=== PATIENT | female | born 1965 | race Caucasian/White ===

== ENCOUNTER 2017-02-21 14:48 | Emergency (ER) | payer OTHER ==
[2017-02-21 17:33] VITALS: BP 135/75
--- NOTE | 2017-02-21 18:10 | ED ---
Mega Wylie Erika, scribed for Baljinder Olivares MD on 02/21/17 at 1701 . GI/ HPI - HPI Summary HPI Summary: Patient is a 51-year-old female presenting to the ED for STD testing. Patient reports that she recently found out her partner was cheating on her, and is unsure if he has STDs or not. Patient denies any symptoms. - History of Current Complaint Chief Complaint: EDUrogenitalProblems Time Seen by Provider: 02/21/17 15:56 Stated Complaint: STD TESTING Hx Obtained From: Patient Current Severity: None Pain Intensity: 0 Associated Signs and Symptoms: Positive: Negative Aggravating Factor(s): Nothing Alleviating Factor(s): Nothing - Allergy/Home Medications Allergies/Adverse Reactions: Allergies Allergy/AdvReac Type Severity Reaction Status Date / Time Sulfa Drugs Allergy Intermediate See Comment Verified 02/21/17 14:52 Yellow Dye Allergy Intermediate GI Upset Verified 02/21/17 14:52 [From RA Ibuprofen] Adhesive Tape [Paper Tape] Allergy Mild Rash Verified 02/21/17 14:52 Latex Allergy Mild Rash Verified 02/21/17 14:52 Amoxicillin Allergy GI Upset Verified 02/21/17 14:52 Azithromycin [From Z-Peng] Allergy GI Upset Verified 02/21/17 14:52 Cefaclor [From Ceclor] Allergy GI Upset Verified 02/21/17 14:52 Cephalexin [From Keflex] Allergy GI Upset Verified 02/21/17 14:52 Doxycycline Allergy Vomiting Verified 02/21/17 14:52 Erythromycin Allergy GI Upset Verified 02/21/17 14:52 Hydrocodone Allergy GI Upset Verified 02/21/17 14:52 Ibuprofen Allergy GI Upset Verified 02/21/17 14:52 Iodinated Contrast Media Allergy Hives Verified 02/21/17 14:52 [CONTRAST DYE] Levofloxacin [From Levaquin] Allergy Dizziness Verified 02/21/17 14:52 Penicillin G Allergy GI Upset Verified 02/21/17 14:52 Procaine [From Novocain] Allergy Agitation Verified 02/21/17 14:52 PMH/Surg Hx/FS Hx/Imm Hx Endocrine/Hematology History: Reports: Hx Thyroid Disease - HYPO Denies: Hx Diabetes Cardiovascular History: Denies: Hx Hypertension, Hx Pacemaker/ICD Respiratory History: Reports: Hx Asthma - INHALERS Denies: Hx Chronic Obstructive Pulmonary Disease (COPD) GI History: Reports: Hx Gastroesophageal Reflux Disease, Hx Hiatal Hernia Denies: Hx Ulcer History: Denies: Hx Dialysis, Hx Renal Disease Musculoskeletal History: Reports: Hx Arthritis - "ALL OVER", Other Musculoskeletal History - DDD Sensory History: Reports: Hx Contacts or Glasses - GLASSES Denies: Hx Hearing Aid Opthamlomology History: Reports: Hx Contacts or Glasses - GLASSES Psychiatric History: Reports: Hx Anxiety - ON DAILY MEDS, Hx Depression, Hx Panic Disorder, Hx Bipolar Disorder - Cancer History Hx Chemotherapy: No Hx Radiation Therapy: No - Surgical History Surgery Procedure, Year, and Place: OPEN KEYANA AND APPY 1987. HERNIA REPAIR 1996. [place] [facility] [place] [facility] [place] Anesthesia Reactions: No Infectious Disease History: No Infectious Disease History: Reports: Hx Shingles Denies: Hx Clostridium Difficile, Hx Hepatitis, Hx Human Immunodeficiency Virus (HIV), Hx of Known/Suspected MRSA, Hx Tuberculosis, Hx Known/Suspected VRE , Hx Known/Suspected VRSA, History Other Infectious Disease, Traveled Outside the [place] in Last 30 Days - Family History Known Family History: Positive: Other - breast cancer - Social History Alcohol Use: None Hx Substance Use: No Substance Use Type: Reports: None Hx Tobacco Use: Yes Smoking Status (MU): Former Smoker Type: Cigarettes Amount Used/How Often: 1/2 PPD Length of Time of Smoking/Using Tobacco: 10 YRS Have You Smoked in the Last Year: No Review of Systems Negative: Fever Negative: Abdominal Pain Negative: dysuria, discharge All Other Systems Reviewed And Are Negative: Yes Physical Exam Triage Information Reviewed: Yes Vital Signs On Initial Exam: Initial Vitals Temp Pulse Resp BP Pulse Ox 97.7 F 79 17 154/82 97 02/21/17 14:52 02/21/17 14:52 02/21/17 14:52 02/21/17 14:52 02/21/17 14:52 Vital Signs Reviewed: Yes Appearance: Positive: Well-Appearing, No Pain Distress, Obese Skin: Positive: Warm, Skin Color Reflects Adequate Perfusion, Dry Head/Face: Positive: Normal Head/Face Inspection Eyes: Positive: Normal ENT: Positive: Normal ENT inspection Neck: Positive: Supple, Nontender Respiratory/Lung Sounds: Positive: Clear to Auscultation, Breath Sounds Present Cardiovascular: Positive: RRR Abdomen Description: Positive: Nontender, Soft Bowel Sounds: Positive: Present Musculoskeletal: Positive: Normal Neurological: Positive: Normal Psychiatric: Positive: Affect/Mood Appropriate Diagnostics - Vital Signs Vital Signs Temp Pulse Resp BP Pulse Ox 02/21/17 14:54 97.7 F 79 17 154/82 97 02/21/17 14:52 97.7 F 79 17 154/82 97 - Laboratory Lab Statement: Any lab studies that have been ordered have been reviewed, and results considered in the medical decision making process. Re-Evaluation - Re-Evaluation First Eval Re-Evaluation Time: 17:25 Comment: Discussed procedure for test results. Will call if results are positive and meds will be prescribed as necessary GIGU Course/Dx - Course Course Of Treatment: Ms. Zapata is completely asymptomatic and I sent off labs. I recommended that she get checked out if she develops any symptoms and we will , of course, call her if her tests come back positive. - Diagnoses Provider Diagnoses: Concern about STD in female without diagnosis Discharge - Discharge Plan Condition: Stable Disposition: HOME Patient Education Materials: Sexually Transmitted Diseases (ED) Referrals: Yoli Ro MD [Primary Care Provider] - Additional Instructions: We will call you if tests are positive. If you have any symptoms, please follow up. The documentation as recorded by the Mega wooten Erika accurately reflects the service I personally performed and the decisions made by me, Baljinder Olivares MD.
== END 2017-02-21 17:31 | disposition home or self-care (01) ==
LOC: ED 14:48
DX: Z20.2 Contact with and (suspected) exposure to infections with a predominantly sexual mode of transmission (principal); Z88.0 Allergy status to penicillin; Z88.2 Allergy status to sulfonamides; E03.9 Hypothyroidism, unspecified; J45.909 Unspecified asthma, uncomplicated; K21.9 Gastro-esophageal reflux disease without esophagitis; F41.9 Anxiety disorder, unspecified; F32.9 Major depressive disorder, single episode, unspecified; Z87.891 Personal history of nicotine dependence
CPT/HCPCS: 36415; 86703; 86803; 87491; 87591; 99281

== ENCOUNTER 2017-03-05 11:31 | Emergency (ER) | payer OTHER ==
[2017-03-05 11:36] VITALS: BP 145/72
--- NOTE | 2017-03-05 12:37 | ED ---
Lower Extremity - HPI Summary HPI Summary: 51 y/o female w h/o DM, chronic back pain, presents for R foot pain x 1 week, no trauma/ incident, no other symptoms, increased pain with walking initially longer distances, now with walking any distance. Patient states no change in pain level throughout day, pain 10/10. NO prior injuries/ similar incidents to rR ankle in past. No working currently. VSS. H/O varicose veins, no chest pain, shortness of breath - History of Current Complaint Chief Complaint: EDExtremityLower Stated Complaint: RIGHT FOOT PAIN Time Seen by Provider: 03/05/17 12:14 Hx Obtained From: Patient Hx Last Menstrual Period: 05/14/2013 Mechanism Of Injury: Unknown - no trauma incident identified Onset of Pain: Immediate Onset/Duration: Weeks - 1 week Pain Intensity: 10 Pain Scale Used: 0-10 Numeric Timing: Constant Location: Is Discrete @ - right inner ankle/ foot Character Of Pain: Sharp, Throbbing Associated Signs And Symptoms: Positive: Negative Aggravating Factor(s): Standing, Ambulation, Movement, Weight Bearing - Allergies/Home Medications Allergies/Adverse Reactions: Allergies Allergy/AdvReac Type Severity Reaction Status Date / Time Sulfa Drugs Allergy Intermediate See Comment Verified 03/05/17 11:35 Yellow Dye Allergy Intermediate GI Upset Verified 03/05/17 11:35 [From RA Ibuprofen] Adhesive Tape [Paper Tape] Allergy Mild Rash Verified 03/05/17 11:35 Latex Allergy Mild Rash Verified 03/05/17 11:35 Amoxicillin Allergy GI Upset Verified 03/05/17 11:35 Azithromycin [From Z-Peng] Allergy GI Upset Verified 03/05/17 11:35 Cefaclor [From Ceclor] Allergy GI Upset Verified 03/05/17 11:35 Cephalexin [From Keflex] Allergy GI Upset Verified 03/05/17 11:35 Doxycycline Allergy Vomiting Verified 03/05/17 11:35 Erythromycin Allergy GI Upset Verified 03/05/17 11:35 Hydrocodone Allergy GI Upset Verified 03/05/17 11:35 Ibuprofen Allergy GI Upset Verified 03/05/17 11:35 Iodinated Contrast Media Allergy Hives Verified 03/05/17 11:35 [CONTRAST DYE] Levofloxacin [From Levaquin] Allergy Dizziness Verified 03/05/17 11:35 Penicillin G Allergy GI Upset Verified 03/05/17 11:35 Procaine [From Novocain] Allergy Agitation Verified 03/05/17 11:35 PMH/Surg Hx/FS Hx/Imm Hx Previously Healthy: Yes Endocrine/Hematology History: Reports: Hx Thyroid Disease - HYPO Denies: Hx Diabetes Cardiovascular History: Denies: Hx Hypertension, Hx Pacemaker/ICD Respiratory History: Reports: Hx Asthma - INHALERS Denies: Hx Chronic Obstructive Pulmonary Disease (COPD) GI History: Reports: Hx Gastroesophageal Reflux Disease, Hx Hiatal Hernia Denies: Hx Ulcer History: Denies: Hx Dialysis, Hx Renal Disease Musculoskeletal History: Reports: Hx Arthritis - "ALL OVER", Other Musculoskeletal History - DDD Sensory History: Reports: Hx Contacts or Glasses - GLASSES Denies: Hx Hearing Aid Opthamlomology History: Reports: Hx Contacts or Glasses - GLASSES Psychiatric History: Reports: Hx Anxiety - ON DAILY MEDS, Hx Depression, Hx Panic Disorder, Hx Bipolar Disorder - Cancer History Hx Chemotherapy: No Hx Radiation Therapy: No - Surgical History Surgery Procedure, Year, and Place: OPEN KEYANA AND APPY 1987. HERNIA REPAIR 1996. RT KNEE SURGERY 2005 [facility] [place]. LAP HERNIA REPAIR 2014 [facility] [place] Hx Anesthesia Reactions: No Infectious Disease History: No Infectious Disease History: Reports: Hx Shingles Denies: Hx Clostridium Difficile, Hx Hepatitis, Hx Human Immunodeficiency Virus (HIV), Hx of Known/Suspected MRSA, Hx Tuberculosis, Hx Known/Suspected VRE , Hx Known/Suspected VRSA, History Other Infectious Disease, Traveled Outside the in Last 30 Days - Family History Known Family History: Positive: None - reviewed & noncontributory, Other - breast cancer - Social History Alcohol Use: None Hx Substance Use: No Substance Use Type: Reports: None Hx Tobacco Use: Yes Smoking Status (MU): Never Smoked Tobacco Type: Cigarettes Amount Used/How Often: 1/2 PPD Length of Time of Smoking/Using Tobacco: 10 YRS Have You Smoked in the Last Year: No Review of Systems Constitutional: Negative Eyes: Negative ENT: Negative Cardiovascular: Negative Respiratory: Negative Gastrointestinal: Negative Genitourinary: Negative Positive: Myalgia, Decreased ROM Skin: Negative Neurological: Negative Psychological: Normal All Other Systems Reviewed And Are Negative: Yes Physical Exam Triage Information Reviewed: Yes Vital Signs On Initial Exam: Initial Vitals Temp Pulse Resp BP Pulse Ox 99.3 F 86 16 145/72 97 03/05/17 11:35 03/05/17 11:35 03/05/17 11:35 03/05/17 11:35 03/05/17 11:35 Vital Signs Reviewed: Yes Appearance: Positive: Well-Appearing, No Pain Distress - sitting comfortably in bed, texting on phone throughout examination, avoiding eye contact with examiner , answering in short statements, Well-Nourished Skin: Positive: Warm, Skin Color Reflects Adequate Perfusion, Other - + VV with tenderness to palpation over VV right proximal medial malleolus, mild tenderness to palption over inferior medial malleolus. Head/Face: Positive: Normal Head/Face Inspection Eyes: Positive: EOMI Musculoskeletal: Positive: Normal, Strength/ROM Intact, Other - see above tenderness to palpation around medial malleous, no tenderness over malleolus itself. Neurological: Positive: Normal, Sensory/Motor Intact, Alert, Oriented to Person Place, Time, CN Intact II-III Psychiatric: Positive: Normal Diagnostics - Vital Signs Vital Signs Temp Pulse Resp BP Pulse Ox 03/05/17 11:36 99.3 F 86 16 145/72 98 03/05/17 11:35 99.3 F 86 16 145/72 97 - Laboratory Lab Statement: Any lab studies that have been ordered have been reviewed, and results considered in the medical decision making process. Lower Extremity Course/Dx - Course Course Of Treatment: US- R LE- negative for DVT, discussed with patient, no clear sign of trauma, no sign of infection, follow up with PCP, patient has appt on . - Diagnoses Differential Diagnosis/HQI/PQRI: Positive: Cellulitis, Compartment Syndrome, Contusion, Dislocation, DVT, Infection, Osteomyelitis, Phlebitis Provider Diagnoses: Acute ankle pain Discharge - Discharge Plan Condition: Stable Disposition: HOME Prescriptions: Acetaminophen TAB* [Tylenol TAB*] 650 mg PO Q6H PRN #20 tab PRN Reason: Pain Patient Education Materials: Superficial Thrombophlebitis (ED) Referrals: Yoli Ro MD [Primary Care Provider] - Additional Instructions: - Likely superficial thrombophlebitis. Negative for deep vein thrombosis, follow up with primary physician within 48 hours for treatment
--- NOTE | 2017-03-05 13:07 | RAD ---
Indication: Right leg pain. Duplex Doppler sonography of the deep venous system of the right lower extremity deep venous system was performed. Bilaterally the common femoral veins appear patent and compressible. Right proximal greater saphenous vein, proximal deep femoral vein, femoral vein, popliteal vein, posterior tibial veins and peroneal veins appear patent and compressible. IMPRESSION: NO EVIDENCE OF DEEP VENOUS THROMBOSIS IS IDENTIFIED.
== END 2017-03-05 13:34 | disposition home or self-care (01) ==
LOC: ED 11:31
DX: M25.571 Pain in right ankle and joints of right foot (principal); M54.9 Dorsalgia, unspecified; M79.671 Pain in right foot
CPT/HCPCS: 99281

== ENCOUNTER 2017-04-21 11:34 | Emergency (ER) | payer OTHER ==
[2017-04-21] MEDS ORDERED: NS 0.9% 1000 ML* 1,000 ML IV ONE (12:25)
[2017-04-21 13:46] LABS: Hematocrit 29 % (35-47); Hemoglobin 9.2 g/dl (12.0-16.0); Mean Corpuscular HGB Conc 32 g/dl (31-36); Mean Corpuscular Hemoglobin 26 pg (27-31); Mean Corpuscular Volume 82 fL (80-97); Mean Platelet Volume 9 um3 (7.4-10.4); Red Blood Count 3.49 10^6/ul (4.0-5.4); Red Cell Distribution Width 16 % (10.5-15)
--- NOTE | 2017-04-21 13:47 | RAD ---
INDICATION: Perimenopausal and heavy vaginal bleeding times one year. COMPARISON: Similar examinations dated 11/27/2013 and 07/24/2009 TECHNIQUE: Real-time transabdominal and transvaginal ultrasound examination of the female pelvis including grayscale and Doppler color flow imaging. FINDINGS: Uterus: Overall the myometrium is heterogeneous in appearance. The endometrial stripe measures 3 mm in thickness but there appears to be thickening of the junctional zone measuring at least 6 mm in thickness and perhaps nearly 2 cm at the fundal height uterus. A similar appearance was identified on the ultrasounds acquired in 2013 and 2008. There is an ill-defined convex line seen in the anterior fundal height myometrial which potentially could be the outline of a fibroid or adenomyoma (image 2 of 43). Ovaries: The right and left ovary measure 3.5 x 1.9 x 1.7 cm and 2.6 x 2.2 x 1.8 cm, respectively. Normal arterial and venous waveforms are identified. Within the left ovary there appears to be a 2 cm avascular and echogenic focus that possibly could represent a hemorrhagic follicle. The appearance is not significantly changed when compared to the November 27, 2013 ultrasound. There is no free fluid in the cul-de-sac. IMPRESSION: 1. As described above there is questionable thickening of the junctional zone as well as questionable identification of a poorly defined mass at the fundal height uterus. This potentially could represent a fibroid, adenomyoma or, less likely, a more sinister etiology. Review of prior imaging demonstrates junctional zone thickening on the November 27, 2013 ultrasound which is a finding associated with adenomyosis. 2. Avascular echogenic structure in the left ovary does not appear to have changed significantly since the November 27, 2013 ultrasound. In the absence of other further gynecologic workup, the left ovary can be followed up with pelvic ultrasound in approximately 6 weeks to ascertain resolution versus stability.
[2017-04-21 14:07] LABS: Albumin 3.8 g/dL (3.2-5.2); BUN/Creatinine Ratio 12.2 (8-20); C Reactive Protein 8.59 mg/L (< 5.00); Calcium 8.8 mg/dL (8.6-10.3); EGFR African American 94.5 (>60); EGFR Non-African American 73.5 (>60); Globulin 3.1 g/dL (2-4); Potassium 4.1 mmol/L (3.5-5.0); Total Bilirubin 0.3 mg/dL (0.2-1.0); Total Protein 6.9 g/dL (6.4-8.9)
[2017-04-21 14:42] LABS: Urine Bilirubin Negative (Negative); Urine Glucose Negative (Negative); Urine Nitrite Negative (Negative)
[2017-04-21 15:04] VITALS: BP 126/81
--- NOTE | 2017-04-22 11:04 | ED ---
Braden Wylie Auryana, scribed for Jayjay Lara MD on 04/21/17 at 1227 . Abdominal Pain/Female - HPI Summary HPI Summary: 51 year old female presents to the ED with vaginal bleeding and cramping suprapubic abdominal pain starting 3.5 weeks ago. She also has increased fatigue , and SOB. She states that this is her first episode with the current complaint - states that her menstrual cycle is typically 3 days long and light. She denies any chance of - tubal ligation. She is not on any blood thinners. She is currently scheduled to see an WINDOWS ADMIN on 05/09/17. PMHx is significant for tubal ligation (Nov 2016), cholecystectomy, appendectomy, double hernia repair, and an umbilical surgery. She denies any tobacco, alcohol , or recreational drug use. FHx is significant for DM and cancer. - History of Current Complaint Chief Complaint: EDAbdPain Stated Complaint: HEAVY VAGINAL BLEEDING Time Seen by Provider: 04/21/17 12:07 Hx Obtained From: Patient Hx Last Menstrual Period: 03/16/17 ?: No Onset/Duration: Gradual Onset, Lasting Weeks - since apr 01 2017 Timing: Constant Severity Initially: Moderate Severity Currently: Moderate Pain Intensity: 6 Pain Scale Used: 0-10 Numeric Location: Suprapubic Character: Cramping Associated Signs and Symptoms: Positive: Vaginal Bleeding, Other: - increased fatigue, SOB , abdominal pain Simlar Episode/Dx as:: no Allergies/Adverse Reactions: Allergies Allergy/AdvReac Type Severity Reaction Status Date / Time Sulfa Drugs Allergy Intermediate See Comment Verified 03/05/17 11:35 Yellow Dye Allergy Intermediate GI Upset Verified 03/05/17 11:35 [From RA Ibuprofen] Adhesive Tape [Paper Tape] Allergy Mild Rash Verified 03/05/17 11:35 Latex Allergy Mild Rash Verified 03/05/17 11:35 Amoxicillin Allergy GI Upset Verified 03/05/17 11:35 Azithromycin [From Z-Peng] Allergy GI Upset Verified 03/05/17 11:35 Cefaclor [From Ceclor] Allergy GI Upset Verified 03/05/17 11:35 Cephalexin [From Keflex] Allergy GI Upset Verified 03/05/17 11:35 Doxycycline Allergy Vomiting Verified 03/05/17 11:35 Erythromycin Allergy GI Upset Verified 03/05/17 11:35 Hydrocodone Allergy GI Upset Verified 03/05/17 11:35 Ibuprofen Allergy GI Upset Verified 03/05/17 11:35 Iodinated Contrast Media Allergy Hives Verified 03/05/17 11:35 [CONTRAST DYE] Levofloxacin [From Levaquin] Allergy Dizziness Verified 03/05/17 11:35 Penicillin G Allergy GI Upset Verified 03/05/17 11:35 Procaine [From Novocain] Allergy Agitation Verified 03/05/17 11:35 PMH/Surg Hx/FS Hx/Imm Hx Endocrine/Hematology History: Reports: Hx Thyroid Disease - HYPO Denies: Hx Diabetes Cardiovascular History: Denies: Hx Hypertension, Hx Pacemaker/ICD Respiratory History: Reports: Hx Asthma Denies: Hx Chronic Obstructive Pulmonary Disease (COPD) GI History: Reports: Hx Gastroesophageal Reflux Disease, Hx Hiatal Hernia Denies: Hx Ulcer History: Denies: Hx Dialysis, Hx Renal Disease Musculoskeletal History: Reports: Hx Arthritis - "ALL OVER", Other Musculoskeletal History - DDD Sensory History: Reports: Hx Contacts or Glasses - GLASSES Denies: Hx Hearing Aid Opthamlomology History: Reports: Hx Contacts or Glasses - GLASSES Psychiatric History: Reports: Hx Anxiety - ON DAILY MEDS, Hx Depression, Hx Panic Disorder, Hx Bipolar Disorder - Cancer History Hx Chemotherapy: No Hx Radiation Therapy: No - Surgical History Surgery Procedure, Year, and Place: OPEN KEYANA AND APPY 1987. HERNIA REPAIR 1996. RT KNEE SURGERY 2005 [facility] [place]. LAP HERNIA REPAIR 2014 [facility] [place] Hx Anesthesia Reactions: No Infectious Disease History: No Infectious Disease History: Reports: Hx Shingles Denies: Hx Clostridium Difficile, Hx Hepatitis, Hx Human Immunodeficiency Virus (HIV), Hx of Known/Suspected MRSA, Hx Tuberculosis, Hx Known/Suspected VRE , Hx Known/Suspected VRSA, History Other Infectious Disease, Traveled Outside the [place] in Last 30 Days - Family History Known Family History: Positive: Diabetes, Other - breast cancer - Social History Occupation: Unemployed Lives: With Family Alcohol Use: None Hx Substance Use: No Substance Use Type: Reports: None Hx Tobacco Use: Yes Smoking Status (MU): Former Smoker Type: Cigarettes Amount Used/How Often: 1/2 PPD Length of Time of Smoking/Using Tobacco: 10 YRS Have You Smoked in the Last Year: No Review of Systems Positive: Fatigue. Negative: Fever Eyes: Negative ENT: Negative Cardiovascular: Negative Positive: Shortness Of Breath Positive: Abdominal Pain - suprapubic Positive: other - vaginal bleeding Musculoskeletal: Negative Skin: Negative Neurological: Negative Psychological: Normal All Other Systems Reviewed And Are Negative: Yes Physical Exam - Summary Physical Exam Summary: VITAL SIGNS: Reviewed. GENERAL: Patient is a well-developed and nourished female who is lying comfortable in the stretcher. Patient is not in any acute respiratory or pain distress. HEAD AND FACE: Normocephalic and atraumatic. EYES: PERRLA, EOMI x 2, No injected conjunctiva. EARS: Hearing grossly intact. Ear canals and tympanic membranes are WNL. MOUTH: Oropharynx within normal limits. NECK: Supple, trachea is midline, no adenopathy, no JVD. CHEST: Symmetric, no tenderness at palpation LUNGS: Clear to auscultation bilaterally. No wheezing or crackles. CVS: RRR, S1 and S2 present, no murmurs or gallops appreciated. ABDOMEN: Soft, non-tender. No signs of distention. Positive bowel sounds. No rebound no guarding, and no masses palpated. No abdominal bruit or pulsations. EXTREMITIES: FROM in all major joints, no edema, no cyanosis or clubbing. NEURO: Alert and oriented x 3. No acute neurological deficits. Speech is normal. SKIN: Dry and warm Triage Information Reviewed: Yes Vital Signs On Initial Exam: Initial Vitals Temp Pulse Resp BP Pulse Ox 97.8 F 94 20 153/68 96 04/21/17 11:47 04/21/17 11:47 04/21/17 11:47 04/21/17 11:47 04/21/17 11:47 Vital Signs Reviewed: Yes Diagnostics - Vital Signs Vital Signs Temp Pulse Resp BP Pulse Ox 04/21/17 11:48 98.2 F 91 20 153/68 98 04/21/17 11:47 97.8 F 94 20 153/68 96 - Laboratory Lab Results: Lab Results 04/21/17 04/21/17 04/21/17 Range/Units 13:33 13:33 14:25 WBC 8.0 (3.5-10.8) 10^3/ul RBC 3.49 L (4.0-5.4) 10^6/ul Hgb 9.2 L (12.0-16.0) g/dl Hct 29 L (35-47) % MCV 82 (80-97) fL MCH 26 L (27-31) pg MCHC 32 (31-36) g/dl RDW 16 H (10.5-15) % Plt Count 214 (150-450) 10^3/ul MPV 9 (7.4-10.4) um3 Neut % (Auto) 70.1 (38-83) % Lymph % (Auto) 19.7 L (25-47) % [place] % (Auto) 8.3 (1-9) % Eos % (Auto) 1.1 (0-6) % Baso % (Auto) 0.8 (0-2) % Absolute Neuts (auto) 5.6 (1.5-7.7) 10^3/ul Absolute Lymphs (auto) 1.6 (1.0-4.8) 10^3/ul Absolute Monos (auto) 0.7 (0-0.8) 10^3/ul Absolute Eos (auto) 0.1 (0-0.6) 10^3/ul Absolute Basos (auto) 0.1 (0-0.2) 10^3/ul Absolute Nucleated RBC 0 10^3/ul Nucleated RBC % 0 Sodium 136 (133-145) mmol/L Potassium 4.1 (3.5-5.0) mmol/L Chloride 102 (101-111) mmol/L Carbon Dioxide 30 (22-32) mmol/L Anion Gap 4 (2-11) mmol/L BUN 10 (6-24) mg/dL Creatinine 0.82 (0.51-0.95) mg/dL Est GFR ( Amer) 94.5 (>60) Est GFR (Non-Af Amer) 73.5 (>60) BUN/Creatinine Ratio 12.2 (8-20) Glucose 71 (70-100) mg/dL Calcium 8.8 (8.6-10.3) mg/dL Total Bilirubin 0.30 (0.2-1.0) mg/dL AST 16 (13-39) U/L ALT 14 (7-52) U/L Alkaline Phosphatase 58 (34-104) U/L C-Reactive Protein 8.59 H (< 5.00) mg/L Total Protein 6.9 (6.4-8.9) g/dL Albumin 3.8 (3.2-5.2) g/dL Globulin 3.1 (2-4) g/dL Albumin/Globulin Ratio 1.2 (1-3) Lipase 25 (11.0-82.0) U/L Beta HCG, Quant 0.74 mIU/mL Urine Color Yellow Urine Appearance Clear Urine pH 6.0 (5-9) Ur Specific [place] 1.009 L (1.010-1.030) Urine Protein Negative (Negative) Urine Ketones Negative (Negative) Urine Blood Negative (Negative) Urine Nitrate Negative (Negative) Urine Bilirubin Negative (Negative) Urine Urobilinogen Negative (Negative) Ur Leukocyte Esterase Negative (Negative) Urine Glucose Negative (Negative) Result Diagrams: 04/21/17 13:33 04/21/17 13:33 Lab Statement: Any lab studies that have been ordered have been reviewed, and results considered in the medical decision making process. - Additional Comments Diagnostic Additional Comments: US TRANSVAGINAL IMPRESSION: 1. As described above there is questionable thickening of the junctional zone as well as questionable identification of a poorly defined mass at the fundal height uterus. This potentially could represent a fibroid, adenomyoma or, less likely, a more sinister etiology. Review of prior imaging demonstrates junctional zone thickening on the November 27, 2013 ultrasound which is a finding associated with adenomyosis. 2. Avascular echogenic structure in the left ovary does not appear to have changed significantly since the November 27, 2013 ultrasound. In the absence of other further gynecologic workup, the left ovary can be followed up with pelvic ultrasound in approximately 6 weeks to ascertain resolution versus stability. Re-Evaluation - Re-Evaluation First Eval Re-Evaluation Time: 14:35 - discussed US and plan of discharge Change: Unchanged Comment: patient declined vaginal exam Abdominal Pain Fem Course/Dx - Course Course Of Treatment: 51 year old female presents to the ED with vaginal bleeding and cramping suprapubic abdominal pain starting 3.5 weeks ago. She also has increased fatigue, and SOB. She states that this is her first episode with the current complaint - states that her menstrual cycle is typically 3 days long and light. She denies any chance of - tubal ligation. She is not on any blood thinners. She is currently scheduled to see an WINDOWS ADMIN on . PMHx is significant for tubal ligation (Nov 2016), cholecystectomy, appendectomy, double hernia repair, and an umbilical surgery. She denies any tobacco, alcohol, or recreational drug use. FHx is significant for DM and cancer. Test results WNL except Hg 9.2 Hct 29, UA- neg U.T.I. Patient declined pelvic exam but accepted transvaginal US - IMPRESSION: 1. As described above there is questionable thickening of the junctional zone as well as. questionable identification of a poorly defined mass at the fundal height uterus. This. potentially could represent a fibroid, adenomyoma or, less likely , a more sinister. etiology. Review of prior imaging demonstrates junctional zone thickening on the 2013 ultrasound which is a finding associated with adenomyosis. 2. Avascular echogenic structure in the left ovary does not appear to have changed. significantly since the November 27, 2013 ultrasound. In the absence of other further. gynecologic workup, the left ovary can be followed up with pelvic ultrasound in. approximately 6 weeks to ascertain resolution versus stability. . I discussed my physical exam and findings with Dr. Garg (WINDOWS ADMIN) recommends discharge home with follow up at office with further assessment and treatment. Patient is hemodynamically stable and A&O x3. No dizziness, lightheadedness or SOB. I discussed this with patient and she agreed to follow up in next couple of days for the treatment. She was instructed to return to ER if increased bleeding, dizziness, palpitations, or SOB. Patient understands and agrees. Patient is hemodynamically stable and A&O x3. - Diagnoses Differential Diagnosis: Positive: Ectopic , , Urinary Tract Infection Provider Diagnoses: Abnormal vaginal bleeding, Fibroid uterus - Provider Notifications Discussed Care Of Patient With: Mandeep Garg - follow up with office Time Discussed With Above Provider: 14:37 Instructed by Provider To: Have Pt Call For Appt. Discharge - Discharge Plan Condition: Stable Disposition: HOME Patient Education Materials: Dysfunctional Uterine Bleeding (ED), Uterine Fibroids (ED) Referrals: Mandeep Garg MD [Medical Doctor] - 2 Days Onesimo Willis MD [Medical Doctor] - 3 Days The documentation as recorded by the Braden wooten Auryana accurately reflects the service I personally performed and the decisions made by , Jayjay Lara MD.
== END 2017-04-21 15:17 | disposition home or self-care (01) ==
LOC: ED 11:34
DX: N93.9 Abnormal uterine and vaginal bleeding, unspecified (principal); D25.9 Leiomyoma of uterus, unspecified; Z32.02 Encounter for pregnancy test, result negative; R53.83 Other fatigue; R06.02 Shortness of breath; R10.30 Lower abdominal pain, unspecified; E03.9 Hypothyroidism, unspecified; J45.909 Unspecified asthma, uncomplicated; K21.9 Gastro-esophageal reflux disease without esophagitis; F41.9 Anxiety disorder, unspecified; F32.9 Major depressive disorder, single episode, unspecified; Z90.49 Acquired absence of other specified parts of digestive tract; Z88.4 Allergy status to anesthetic agent; Z88.0 Allergy status to penicillin; Z88.2 Allergy status to sulfonamides; Z88.1 Allergy status to other antibiotic agents; Z91.040 Latex allergy status; Z88.5 Allergy status to narcotic agent; Z88.6 Allergy status to analgesic agent; Z91.041 Radiographic dye allergy status; Z87.891 Personal history of nicotine dependence
CPT/HCPCS: 36415; 76830; 80053; 81003; 83690; 84702; 85025; 86140; 96360; 99282

== ENCOUNTER 2019-02-06 14:03 | Emergency (ER) | payer OTHER ==
[2019-02-06] MEDS ORDERED: Ketorolac INJ* 60 MG/2 ML VIAL IM ONE (14:57)
--- NOTE | 2019-02-06 15:23 | ED ---
Throat Pain/Nasal Congestion - HPI Summary HPI Summary: Patient is a 53-year-old female presenting to the ED with upper left tooth pain which is been present since December. She states the worst of her symptoms began approximately 2 weeks ago and it continued to worsen. She denies any erythema or drainage from the area. She states she the tooth pulled, called the dentist today, but they were unable to get her in. This is just she come over to the ED for antibiotics and they will see her next week to extract the tooth. She has gingivitis and several broken teeth and cavities throughout. She has never had a dental infection in the past. She has multiple drug allergies. She has been using saltwater rinses without relief, she has not been using ibuprofen or aspirin due to a allergy. - History of Current Complaint Chief Complaint: EDDentalPain Time Seen by Provider: 02/06/19 14:18 Hx Obtained From: Patient Onset/Duration: Sudden Onset Associated Signs And Symptoms: Positive: Negative Cough: Nonproductive - Epiglottits Risk Factors Epiglottis Risk Factors: Negative - Allergies/Home Medications Allergies/Adverse Reactions: Allergies Allergy/AdvReac Type Severity Reaction Status Date / Time MS Sulfa Drugs [Sulfa Drugs] Allergy Intermediate See Comment Verified 02/06/19 14:12 MS Yellow Dye Allergy Intermediate GI Upset Verified 02/06/19 14:12 [From RA Ibuprofen] Adhesive Tape [Paper Tape] Allergy Mild Rash Verified 02/06/19 14:12 MS Latex [Latex] Allergy Mild Rash Verified 02/06/19 14:12 MS Amoxicillin [Amoxicillin] Allergy GI Upset Verified 02/06/19 14:12 MS Azithromycin [From Z-Peng] Allergy GI Upset Verified 02/06/19 14:12 MS Cefaclor [From Ceclor] Allergy GI Upset Verified 02/06/19 14:12 MS Cephalexin [From Keflex] Allergy GI Upset Verified 02/06/19 14:12 MS Doxycycline [Doxycycline] Allergy Vomiting Verified 02/06/19 14:12 MS Erythromycin Allergy GI Upset Verified 02/06/19 14:12 [Erythromycin] MS Hydrocodone [Hydrocodone] Allergy GI Upset Verified 02/06/19 14:12 MS Ibuprofen [Ibuprofen] Allergy GI Upset Verified 02/06/19 14:12 MS Iodinated Contrast Media Allergy Hives Verified 02/06/19 14:12 [CONTRAST DYE] MS Levofloxacin Allergy Dizziness Verified 02/06/19 14:12 [From Levaquin] MS Penicillin G Allergy GI Upset Verified 02/06/19 14:12 [Penicillin G] MS Procaine [From Novocain] Allergy Agitation Verified 02/06/19 14:12 PMH/Surg Hx/FS Hx/Imm Hx Previously Healthy: Yes Endocrine/Hematology History: Reports: Hx Thyroid Disease - HYPO Denies: Hx Diabetes Cardiovascular History: Denies: Hx Hypertension, Hx Pacemaker/ICD Respiratory History: Reports: Hx Asthma Denies: Hx Chronic Obstructive Pulmonary Disease (COPD) GI History: Reports: Hx Gastroesophageal Reflux Disease, Hx Hiatal Hernia Denies: Hx Ulcer History: Denies: Hx Dialysis, Hx Renal Disease Musculoskeletal History: Reports: Hx Arthritis - "ALL OVER", Other Musculoskeletal History - DDD Sensory History: Reports: Hx Contacts or Glasses - GLASSES Denies: Hx Hearing Aid Opthamlomology History: Reports: Hx Contacts or Glasses - GLASSES Psychiatric History: Reports: Hx Anxiety - ON DAILY MEDS, Hx Depression, Hx Panic Disorder, Hx Bipolar Disorder - Cancer History Hx Chemotherapy: No Hx Radiation Therapy: No - Surgical History Surgery Procedure, Year, and Place: OPEN KEYANA AND APPY 1987. HERNIA REPAIR 1996. RT K[place]EE [place] [facility] [place] [facility] [place] Hx Anesthesia Reactions: No - Immunization History Hx Pertussis Vaccination: No Immunizations Up to Date: Yes Infectious Disease History: No Infectious Disease History: Reports: Hx Shingles Denies: Hx Clostridium Difficile, Hx Hepatitis, Hx Human Immunodeficiency Virus (HIV), Hx of Known/Suspected MRSA, Hx Tuberculosis, Hx Known/Suspected VRE , Hx Known/Suspected VRSA, History Other Infectious Disease, Traveled Outside the [place] in Last 30 Days - Family History Known Family History: Positive: None - reviewed & noncontributory, Diabetes, Other - breast cancer - Social History Occupation: Unemployed Lives: With Family Alcohol Use: None Hx Substance Use: No Substance Use Type: Reports: None Hx Tobacco Use: Yes Smoking Status (MU): Former Smoker Type: Cigarettes Amount Used/How Often: 1/2 PPD Length of Time of Smoking/Using Tobacco: 10 YRS Have You Smoked in the Last Year: No Review of Systems Negative: Fever, Chills, Fatigue, Skin Diaphoresis Positive: Dental Pain. Negative: Sore Throat Negative: Palpitations, Chest Pain Genitourinary: Negative Positive: no symptoms reported, see HPI Negative: Arthralgia, Myalgia Skin: Negative Neurological: Negative All Other Systems Reviewed And Are Negative: Yes Physical Exam Triage Information Reviewed: Yes Vital Signs On Initial Exam: Initial Vitals Temp Pulse Resp BP Pulse Ox 98.2 F 76 16 167/77 95 02/06/19 14:09 02/06/19 14:09 02/06/19 14:09 02/06/19 14:09 02/06/19 14:09 Vital Signs Reviewed: Yes Appearance: Positive: Well-Appearing, Well-Nourished Skin: Positive: Warm, Skin Color Reflects Adequate Perfusion Dental: Positive: Gross Decay/Caries @ - throughout, Dental Fracture @ - throughout Neck: Positive: Supple, No Lymphadenopathy Respiratory/Lung Sounds: Positive: Clear to Auscultation, Breath Sounds Present Cardiovascular: Positive: Pulses are Symmetrical in both Upper and Lower Extremities. Negative: Leg Edema Left, Leg Edema Right Musculoskeletal: Positive: Normal, Strength/ROM Intact Psychiatric: Positive: Normal, Affect/Mood Appropriate AVPU Assessment: Alert Diagnostics - Vital Signs Vital Signs Temp Pulse Resp BP Pulse Ox 02/06/19 14:09 98.2 F 76 16 167/77 95 - Laboratory Lab Statement: Any lab studies that have been ordered have been reviewed, and results considered in the medical decision making process. EENT Course/Dx - Course Course Of Treatment: During his course of treatment, the patient is evaluated for left upper tooth pain specifically over #14. She states she needs the tooth pulled, however is unable to see her dentist until next week. The dentist advised her to come here to the ED to obtain antibiotics so they can extract the tooth next month. She denies any fevers, sweats, chills. She has had this pain 2 weeks she states this has been worsening. Symptoms are aggravated with chewing and eating, better with nothing. I have given her Toradol in the ED and she is prescribed Toradol as well as clindamycin, to which she is not allergic. - Differential Diagnoses Differential Diagnoses: Dental Caries, Fractured Tooth, Gingivitis - Diagnoses Provider Diagnoses: Tooth pain Discharge - Sign-Out/Discharge Documenting (check all that apply): Patient Departure Patient Received Moderate/Deep Sedation with Procedure: No - Discharge Plan Condition: Stable Disposition: HOME Prescriptions: Clindamycin Cap(NF) [Clindamycin Cap 300 mg Cap(NF)] 300 mg PO Q6H #28 cap Ketorolac TAB * [Toradol TAB *] 10 mg PO Q6H #16 tab Patient Education Materials: Toothache (ED) Referrals: Yoli Ro MD [Primary Care Provider] - Additional Instructions: Clindamycin 4 times daily 7 days Take Toradol 4x daily x 4 days for discomfort You may also use Tylenol intermittently for discomfort Use [id number] Anbesol and clove oil for discomfort Continue to use a water rinses Follow-up with dentist for tooth extraction - Billing Disposition and Condition Condition: STABLE Disposition: Home
[2019-02-06 16:02] VITALS: BP 152/64
== END 2019-02-06 15:40 | disposition home or self-care (01) ==
LOC: ED 14:03
DX: K08.89 Other specified disorders of teeth and supporting structures (principal); Z88.2 Allergy status to sulfonamides; Z88.0 Allergy status to penicillin; K21.9 Gastro-esophageal reflux disease without esophagitis; Z87.891 Personal history of nicotine dependence
CPT/HCPCS: 96372; 99282; J1885

== ENCOUNTER 2019-02-18 16:59 | Emergency (ER) | payer OTHER ==
--- NOTE | 2019-02-18 19:01 | ED ---
Upper Extremity Pain - HPI Summary HPI Summary: 53-year-old female presents with right wrist pain today. She is that her thumb was she in. She states she previously broke her thumb. No numbness or tingling. Has limited range of motion. she hasnt tried anything with her symptoms. Denies any other injury. is ambidextrous. Is not currently working. - History of Current Complaint Chief Complaint: EDExtremityUpper Stated Complaint: RT HAND INJURY PER PT Time Seen by Provider: 02/18/19 18:40 Hx Last Menstrual Period: 03/16/17 - Allergies/Home Medications Allergies/Adverse Reactions: Allergies Allergy/AdvReac Type Severity Reaction Status Date / Time MS Sulfa Drugs [Sulfa Drugs] Allergy Intermediate See Comment Verified 02/18/19 17:10 MS Yellow Dye Allergy Intermediate GI Upset Verified 02/18/19 17:10 [From RA Ibuprofen] Adhesive Tape [Paper Tape] Allergy Mild Rash Verified 02/18/19 17:10 MS Latex [Latex] Allergy Mild Rash Verified 02/18/19 17:10 MS Amoxicillin [Amoxicillin] Allergy GI Upset Verified 02/18/19 17:10 MS Azithromycin [From Z-Peng] Allergy GI Upset Verified 02/18/19 17:10 MS Cefaclor [From Ceclor] Allergy GI Upset Verified 02/18/19 17:10 MS Cephalexin [From Keflex] Allergy GI Upset Verified 02/18/19 17:10 MS Doxycycline [Doxycycline] Allergy Vomiting Verified 02/18/19 17:10 MS Erythromycin Allergy GI Upset Verified 02/18/19 17:10 [Erythromycin] MS Hydrocodone [Hydrocodone] Allergy GI Upset Verified 02/18/19 17:10 MS Ibuprofen [Ibuprofen] Allergy GI Upset Verified 02/18/19 17:10 MS Iodinated Contrast Media Allergy Hives Verified 02/18/19 17:10 [CONTRAST DYE] MS Levofloxacin Allergy Dizziness Verified 02/18/19 17:10 [From Levaquin] MS Penicillin G Allergy GI Upset Verified 02/18/19 17:10 [Penicillin G] MS Procaine [From Novocain] Allergy Agitation Verified 02/18/19 17:10 PMH/Surg Hx/FS Hx/Imm Hx Endocrine/Hematology History: Reports: Hx Thyroid Disease - HYPO Denies: Hx Diabetes Cardiovascular History: Denies: Hx Hypertension, Hx Pacemaker/ICD Respiratory History: Reports: Hx Asthma Denies: Hx Chronic Obstructive Pulmonary Disease (COPD) GI History: Reports: Hx Gastroesophageal Reflux Disease, Hx Hiatal Hernia Denies: Hx Ulcer History: Denies: Hx Dialysis, Hx Renal Disease Musculoskeletal History: Reports: Hx Arthritis - "ALL OVER", Other Musculoskeletal History - DDD Sensory History: Reports: Hx Contacts or Glasses - GLASSES Opthamlomology History: Reports: Hx Contacts or Glasses - GLASSES Psychiatric History: Reports: Hx Anxiety - ON DAILY MEDS, Hx Depression, Hx Panic Disorder, Hx Bipolar Disorder - Cancer History Hx Chemotherapy: No Hx Radiation Therapy: No - Surgical History Surgery Procedure, Year, and Place: OPEN KEYANA AND APPY 1987. HERNIA REPAIR 1996. RT KNEE SURGERY 2005 [facility]. LAP HERNIA REPAIR 2014 [facility] [place] Hx Anesthesia Reactions: No Infectious Disease History: No Infectious Disease History: Reports: Hx Shingles Denies: Hx Clostridium Difficile, Hx Hepatitis, Hx Human Immunodeficiency Virus (HIV), Hx of Known/Suspected MRSA, Hx Tuberculosis, Hx Known/Suspected VRE , Hx Known/Suspected VRSA, History Other Infectious Disease, Traveled Outside the [place] in Last 30 Days - Family History Known Family History: Positive: None - reviewed & noncontributory, Diabetes, Other - breast cancer - Social History Alcohol Use: None Hx Substance Use: No Substance Use Type: Reports: None Hx Tobacco Use: Yes Smoking Status (MU): Former Smoker Type: Cigarettes Amount Used/How Often: 1/2 PPD Length of Time of Smoking/Using Tobacco: 10 YRS Have You Smoked in the Last Year: No Review of Systems Negative: Fever Negative: Chest Pain Negative: Shortness Of Breath Positive: Myalgia - right wrist pain All Other Systems Reviewed And Are Negative: Yes Physical Exam Triage Information Reviewed: Yes Vital Signs On Initial Exam: Initial Vitals Temp Pulse Resp BP Pulse Ox 97.8 F 76 18 156/80 97 02/18/19 17:05 02/18/19 17:05 02/18/19 17:05 02/18/19 17:05 02/18/19 17:05 Vital Signs Reviewed: Yes Appearance: Positive: Well-Appearing Skin: Positive: Warm, Dry Head/Face: Positive: Normal Head/Face Inspection Eyes: Positive: Normal, Conjunctiva Clear ENT: Positive: Pharynx normal Respiratory/Lung Sounds: Positive: Clear to Auscultation, Breath Sounds Present Cardiovascular: Positive: Normal, RRR Musculoskeletal: Positive: Limited @ - right thumb, Other - tenderness over right thumb, good pulses, capillary refill<2 secs, positive snuff box tenderness , Neurological: Positive: Normal Psychiatric: Positive: Normal Diagnostics - Vital Signs Vital Signs Temp Pulse Resp BP Pulse Ox 02/18/19 17:05 97.8 F 76 18 156/80 97 - Laboratory Lab Statement: Any lab studies that have been ordered have been reviewed, and results considered in the medical decision making process. - Radiology wrist Radiology Interpretation Completed By: Radiologist Summary of Radiographic Findings: IMPRESSION: OSTEOARTHRITIS. NO ACUTE OSSEOUS INJURY. IF SYMPTOMS PERSIST, RECOMMEND REPEAT IMAGING. Course/Dx - Course Course Of Treatment: 53-year-old female presents with right wrist pain today. She is that her thumb was she in. She states she previously broke her thumb. No numbness or tingling. Has limited range of motion. she hasnt tried anything with her symptoms. Denies any other injury. is ambidextrous. Is not currently working. On exam tenderness over left right thumb. Neurovascularly intact. Positive snuffbox tenderness. X-rays normal. Gave her prefabrinated thumb spica splint. Told to follow-up with orthopedic no improvement. Patient understands agrees with plan. - Diagnoses Differential Diagnosis/HQI/PQRI: Positive: Fracture (Closed), Strain, Sprain Provider Diagnoses: Injury of right thumb Discharge - Sign-Out/Discharge Documenting (check all that apply): Patient Departure Patient Received Moderate/Deep Sedation with Procedure: No - Discharge Plan Condition: Good Disposition: HOME Patient Education Materials: R.I.C.E. Treatment (ED) Referrals: Yoli Ro MD [Primary Care Provider] - Peggy Menjivar MD [Medical Doctor] - Additional Instructions: Take Tylenol every 6 hours as needed for pain Apply ice, rest, elevate Keep splint on area Follow up with ortho if no improvement Return to ED if develop any new or worsening symptoms - Billing Disposition and Condition Condition: GOOD Disposition: Home
[2019-02-18 19:25] VITALS: BP 163/94
== END 2019-02-18 19:24 | disposition home or self-care (01) ==
LOC: ED 16:59
DX: S69.91XA Unspecified injury of right wrist, hand and finger(s), initial encounter (principal); X58.XXXA Exposure to other specified factors, initial encounter; E03.9 Hypothyroidism, unspecified; K21.9 Gastro-esophageal reflux disease without esophagitis; M19.90 Unspecified osteoarthritis, unspecified site; F41.9 Anxiety disorder, unspecified; F32.9 Major depressive disorder, single episode, unspecified; Z88.8 Allergy status to other drugs, medicaments and biological substances; Z88.3 Allergy status to other anti-infective agents; Z91.040 Latex allergy status; Z88.6 Allergy status to analgesic agent; Z91.041 Radiographic dye allergy status; Z79.899 Other long term (current) drug therapy; Z87.891 Personal history of nicotine dependence
CPT/HCPCS: 36415; 86703; 99282

== ENCOUNTER 2019-05-20 11:38 | Emergency (ER) | payer OTHER ==
--- OUTSIDE RECORDS SUMMARY | 2019-05-20 11:51 | XMS REPORT | Continuity of Care Document ---
:1965 External Reference #:[id number] Author Name Renetta Qureshi Care Team Providers Name Role Phone Yoli Ro MD Primary Care Physician Unavailable Payers Date Identification Numbers Payment Provider Subscriber Effective: 2009 Policy Number: [id number] [employer] Josefina Zapata Expires: 2019 PayID: [id number] [address] [address] [place] [address] Policy Number: [id number] Jared Zapata PayID: [id number] [address] [place] [address] Family History Date Family Member(s) Observation Comments General Cancer General Diabetes General Heart Disease Father Throat Cancer Siblings Several Social History Type Date Description Comments Sex Unknown Marital Status Lives With Other Occupation Disabled Work Status Not Currently Working ETOH Use Denies alcohol use Tobacco Use Start: Unknown End: Patient is a former Quit 2006 Unknown smoker Recreational Drug Use Sporadically uses States she uses it Marijuana once in a while, on and off. Smoking Status Reviewed: 05/10/19 Patient is a former Quit 2007 smoker Exercise Type/Frequency Exercises sporadically Allergies, Adverse Reactions, Alerts Active Allergies Reaction Severity Comments Date Tape 01/26/2015 Latex 01/26/2015 Penicillin 01/26/2015 Amoxicillin 01/26/2015 Erythromycin 01/26/2015 Doxycycline 01/26/2015 Ceclor 01/26/2015 Contrast Dye 01/26/2015 Yellow Dye 01/26/2015 Levofloxacin 01/26/2015 Levaquin 09/26/2016 Penicillin 09/26/2016 Sulfa Antibiotics 09/26/2016 Hydrocodone 09/26/2016 Ibuprofen 03/04/2019 Medications Active Medications SIG Qnty Indications Ordering Date Provider Atorvastatin Calcium 1 by mouth every Unknown 11/27/2018 40mg day Tablets Cane S86.011A Terrence Ash, 04/05/2017 M.D. Montelukast Sodium 1 by mouth every 90tabs Terrence Ash, 01/26/2015 10mg day M.D. Tablets Albuterol Sulfate HFA Unknown 108(90Base) mcg/Act Aerosol Cetirizine Take One Tablet Unknown HCL/Pseudoephedrine HCL By Mouth Every ER Day 5-120mg Tablets ER 12HR Hyoscyamine Sulfate Take One Tablet Unknown 0.125mg By Mouth Every Tablets Day With Meals Cyclobenzaprine HCL Take One Tablet Unknown 10mg By Mouth Three Tablets Times A Day Tramadol HCL 1-2 tablets by Unknown 50mg Tablets mouth every 6 hours as needed pain Levothyroxine Sodium 1 by mouth every Unknown 137mcg day Tablets Calcium + D every day as Unknown needed [id number] Chewtabs Omeprazole 1 by mouth every Unknown 20mg Capsules DR day Anti-Diarrheal use as directed.. Unknown 2mg Tablets Sinus Relief as directed Unknown 0.05% Solution Levalbuterol HCL As Directed Unknown 0.31mg/3ML Nebulizer Buspirone HCL Unknown 10mg Tablets Magnesium Oxide by mouth every Unknown 400mg day Capsules Fluoxetine HCL 1 by mouth every Unknown 40mg day Capsules Advair Diskus 1 inhalation Unknown twice daily 100-50mcg/Dose Aerosol History Medications Cane/Aluminum/Adjustable/Bronze M70.62 Terrence Ash, 11/23/2016 - Tone/Standard Handle M.D. 03/03/2019 Misc Metaxalone 800mg take 1 Unknown - Tablets tablet 3 03/03/2019 times a day as needed Trazodone HCL 1 by mouth Unknown - 100mg Tablets every night 04/04/2017 at bedtime Meloxicam 7.5mg 1 by mouth Unknown - Tablets every day 03/03/2019 Levothyroxine Sodium 1 by mouth Unknown - 75mcg Tablets every day 03/03/2019 Levocetirizine Dihydrochloride 1 by mouth Unknown - 5mg Tablets every day 04/04/2017 Multi For Her 1 by mouth Unknown - Tablets every day 05/09/2019 Iron (Ferrous Sulfate) 1 cap by Unknown - mouth once 05/09/2019 daily Vital Signs Date Vital Result Comment 05/10/2019 12:59pm Height 63 inches 5'3" Weight 226.00 lb BP Systolic 111 mmHg BP Diastolic 72 mmHg Respiratory Rate 17 /min Body Temperature 97.4 F Pain Level 9 BMI (Body Mass Index) 40.0 kg/m2 03/04/2019 3:13pm Height 63 inches 5'3" Weight 233.00 lb Heart Rate 94 /min BP Systolic Sitting 130 mmHg BP Diastolic Sitting 82 mmHg Respiratory Rate 18 /min Pain Level 10 BMI (Body Mass Index) 41.3 kg/m2 05/22/2017 1:46pm Height 63 inches 5'3" Weight 253.00 lb Heart Rate 77 /min BP Systolic 130 mmHg BP Diastolic 80 mmHg Respiratory Rate 17 /min Pain Level 9 BMI (Body Mass Index) 44.8 kg/m2 04/05/2017 9:03am Height 63 inches 5'3" Weight 253.00 lb Heart Rate 68 /min BP Systolic 140 mmHg BP Diastolic 88 mmHg Respiratory Rate 16 /min Body Temperature 96.3 F Pain Level 10 BMI (Body Mass Index) 44.8 kg/m2 11/23/2016 1:54pm Height 63 inches 5'3" Weight 230.00 lb Pain Level 6 BMI (Body Mass Index) 40.7 kg/m2 09/26/2016 10:50am Height 63 inches 5'3" Weight 235.00 lb Heart Rate 60 /min Respiratory Rate 16 /min Pain Level 10 BMI (Body Mass Index) 41.6 kg/m2 04/20/2015 10:53am Height 63 inches 5'3" Weight 233.00 lb Pain Level 9 BMI (Body Mass Index) 41.3 kg/m2 01/26/2015 10:40am Height 63 inches 5'3" Weight 233.00 lb Heart Rate 78 /min BP Systolic 112 mmHg BP Diastolic 77 mmHg Pain Level 9 BMI (Body Mass Index) 41.3 kg/m2 03/22/2011 3:06pm Height 63 inches 5'3" Weight 250.00 lb Heart Rate 97 /min BP Systolic 126 mmHg BP Diastolic 81 mmHg BMI (Body Mass Index) 44.3 kg/m2 Procedures Date Code Description Status 06/02/2016 16430 ECHO Transthoracic, Real-Time 2D With Doppler And Color Completed Flow 06/25/2014 [id number] Mammogram Completed 12/11/2013 88730 EKG, Interpretation Only Completed 07/12/2011 07591 Rad Exam; Fingers Completed Encounters Type Date Location Provider Dx Diagnosis Office Visit 05/10/2019 Neurosurgery Jessie Win, M47.892 Other spondylosis, 1:00p [facility] cervical region Office Visit 03/04/2019 Orthopedic Services Peggy 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 leg Office Visit 04/05/2017 9:00a Orthopedic Terrence Ash, S86.011A Strain of right [facility] Achilles tendon, C.M.A. initial encounter M65.872 Other synovitis and tenosynovitis, left ankle and foot Office Visit 11/23/2016 Orthopedic Terrence Ash M70.62 Trochanteric 2:15p [facility] bursitis, left hip C.M.A. Office Visit 09/26/2016 Orthopedic Peggy Spann8.11 Unil primary 11:00a [facility] Menjivar osteoarth of first C.M.A. carpometacarp joint, r hand M77.02 Medial epicondylitis, left elbow Office Visit 04/20/2015 11:15a Orthopedic Terrence Ash, 845.00 Sprains & Services [facility] Strains Ankle Unspec Site 727.06 Tenosynovitis Foot & Ankle Office Visit 01/26/2015 10:15a Orthopedic Terrence Ash, 726.5 Enthesopathy Of Hip [facility] C.M.A. 845.00 Sprains & Strains Ankle Unspec Site 728.71 Fibromatosis Plantar Fascia Office Visit 08/15/2011 9:00a Orthopedic Elizabeth 719.44 Pain [facility] Diaz Hand C.M.A. Office Visit 07/12/2011 1:15p Orthopedic Jonh Romero M.D. 719.44 Pain Joint [facility] C.M.A. Office Visit 04/25/2011 4:15p Orthopedic Jonh Romero M.D. 719.44 Pain [facility]. Office Visit 03/22/2011 2:45p Orthopedic Jonh Romero M.D. 719.44 Pain [facility] C.M.A. Plan of Treatment Future Appointment(s):05/31/2019 1:30 pm - ANNA Pitts at [facility]06/06/2019 1:00 pm - Eric Loya DO FACC at [facility]05/10/2019 - Jessie Win, PAM47.892 Other spondylosis, cervical regionNew Xrays:Spine Entire Ap/Lat, Ordered: 05/10/19SP Cervical 2-3 VWS, Ordered: 05/10/19MRI Cervical Spine Wo, Ordered: 05/10/19Follow up:RTC3 weeks
--- NOTE | 2019-05-20 12:35 | ED ---
Headache - HPI Summary HPI Summary: This pt is a 53 y/o female presenting [place] [facility] [place]/o headache and neck pain for the past 6 days. Pt reports sitting and walking aggravate her pain. She states having photophobia sometimes, currently denies any. Denies fever, nausea, vomiting. Pt notes this headache is different than her usual headache. She reports her usual headache resolve after taking Tylenol and current headache is persisting. Pt has taken her migraine mediation without relief. Pt has recently started seeing a neurologist because she "might have a spinal cord injury." She notes they are waiting her insurance to approve her MRI. - History Of Current Complaint Chief Complaint: EDHeadache Stated Complaint: HEADACE FOR DAYS PER PT Time Seen by Provider: 05/20/19 12:18 Hx Obtained From: Patient Hx Last Menstrual Period: 03/16/17 Onset/Duration: Started days ago, Still Present Currently Pain Is: Current Pain Scale(0-10)= - 10 Timing: Days Aggravating Factor: Other - sitting, walking Allevating Factors: Nothing Associated Signs And Symptoms: Neck Pain, Other (Noted In Comments) - POSITIVE: sometimes photophobia. NEGATIVE: nausea, vomiting - Allergies/Home Medications Allergies/Adverse Reactions: Allergies Allergy/AdvReac Type Severity Reaction Status Date / Time Adhesive Tape [Paper Tape] Allergy Mild Rash Verified 02/18/19 17:10 adhesive tape Allergy Rash Verified 05/20/19 11:48 amoxicillin Allergy GI Upset Verified 05/20/19 11:48 azithromycin Allergy GI Upset Verified 05/20/19 11:48 cefaclor Allergy GI Upset Verified 05/20/19 11:48 cephalexin Allergy GI Upset Verified 05/20/19 11:48 doxycycline Allergy GI Upset Verified 05/20/19 11:48 erythromycin base Allergy GI Upset Verified 05/20/19 11:48 hydrocodone Allergy GI Upset Verified 05/20/19 11:48 ibuprofen Allergy GI Upset Verified 05/20/19 11:48 Iodinated Contrast- Oral and Allergy Hives Verified 05/20/19 11:48 IV Dye latex Allergy Rash Verified 05/20/19 11:48 levofloxacin Allergy Dizziness Verified 05/20/19 11:48 Penicillins Allergy GI Upset Verified 05/20/19 11:48 procaine Allergy Agitation Verified 05/20/19 11:48 Sulfa (Sulfonamide Allergy Blisters Verified 05/20/19 11:48 Antibiotics) yellow dye Allergy GI Upset Verified 05/20/19 11:48 Home Medications: Home Medications Albuterol HFA INHALER* [Ventolin HFA Inhaler*] 2 puff INH Q6H PRN 05/20/19 [ History Confirmed 05/20/19] Calcium Carbonate/Vitamin D3 [Calcium Carbonate/Vitamin] 1 tab PO BID 05/20/19 [ History Confirmed 05/20/19] Cetirizine HCl/Pseudoephedrine [Cetirizine HCl/Pseudoephe 5-120 mg] 1 tab PO DAILY 05/20/19 [History Confirmed 05/20/19] Cyclobenzaprine TAB* [Flexeril 10 MG TAB*] 10 mg PO TID PRN 05/20/19 [History Confirmed 05/20/19] Fluticasone-Salmeterol 250-50* [Advair Diskus 250-50*] 1 puff INH BID 05/20/19 [ History Confirmed 05/20/19] Hyoscyamine TAB* [Anaspaz 0.125 MG TAB*] 0.125 mg PO DAILY WITH MEAL 05/20/19 [ History Confirmed 05/20/19] Ketotifen Fumarate 5 ml OPHTHALMIC BID PRN 05/20/19 [History Confirmed 05/20/19] Latanoprost 0.005%* [Xalatan 0.005%*] 1 drop OPHTHALMIC BEDTIME 05/20/19 [ History Confirmed 05/20/19] Levalbuterol 1.25MG/0.5ML NEB* [Xopenex 1.25 MG/0.5 ML NEB.GUY*] 1.25 mg INH .Q4 -6H PRN 05/20/19 [History Confirmed 05/20/19] Levothyroxine TAB* [Synthroid TAB*] 137 mcg PO DAILY 05/20/19 [History Confirmed 05/20/19] Magnesium Oxide TAB* [MagOx 400 TAB*] 400 mg PO DAILY 05/20/19 [History Confirmed 05/20/19] Omeprazole (Nf) [Prilosec (NF)] 40 mg PO DAILY 05/20/19 [History Confirmed 05/20] Ranitidine TAB (NF) [Zantac TAB (NF)] 150 mg PO BID 05/20/19 [History Confirmed 05/20/19] hydrOXYzine HCL TAB* [Atarax 25 MG TAB*] 25 - 50 mg PO BEDTIME PRN 05/20/19 [ History Confirmed 05/20/19] traMADol TAB* [Ultram*] 50 mg PO QID 05/20/19 [History Confirmed 05/20/19] PMH/Surg Hx/FS Hx/Imm Hx Endocrine/Hematology History: Reports: Hx Thyroid Disease - HYPO Denies: Hx Diabetes Cardiovascular History: Denies: Hx Hypertension, Hx Pacemaker/ICD Respiratory History: Reports: Hx Asthma Denies: Hx Chronic Obstructive Pulmonary Disease (COPD) GI History: Reports: Hx Gastroesophageal Reflux Disease, Hx Hiatal Hernia Denies: Hx Ulcer History: Denies: Hx Dialysis, Hx Renal Disease Musculoskeletal History: Reports: Hx Arthritis - "ALL OVER", Other Musculoskeletal History - DDD Sensory History: Reports: Hx Contacts or Glasses - GLASSES Opthamlomology History: Reports: Hx Contacts or Glasses - GLASSES Psychiatric History: Reports: Hx Anxiety - ON DAILY MEDS, Hx Depression, Hx Panic Disorder, Hx Bipolar Disorder - Cancer History Hx Chemotherapy: No Hx Radiation Therapy: No - Surgical History Surgery Procedure, Year, and Place: OPEN KEYANA AND APPY 1987. HERNIA REPAIR 1996. [place] [facility] [place] [facility] [place] Anesthesia Reactions: No Infectious Disease History: No Infectious Disease History: Reports: Hx Shingles Denies: Hx Clostridium Difficile, Hx Hepatitis, Hx Human Immunodeficiency Virus (HIV), Hx of Known/Suspected MRSA, Hx Tuberculosis, Hx Known/Suspected VRE , Hx Known/Suspected VRSA, History Other Infectious Disease, Traveled Outside the [place] in Last 30 Days - Family History Known Family History: Positive: Diabetes, Other - breast cancer - Social History Alcohol Use: None Hx Substance Use: No Substance Use Type: Reports: None Hx Tobacco Use: Yes Smoking Status (MU): Former Smoker Type: Cigarettes Amount Used/How Often: 1/2 PPD Length of Time of Smoking/Using Tobacco: 10 YRS Have You Smoked in the Last Year: No Review of Systems Negative: Fever Positive: Photophobia - sometimes Cardiovascular: Negative Respiratory: Negative Negative: Vomiting, Nausea Musculoskeletal: Other - POSITIVE: neck pain Positive: Headache All Other Systems Reviewed And Are Negative: Yes Physical Exam - Summary Physical Exam Summary: Appearance: The patient is well-nourished in no acute distress and in no acute pain. Skin: The skin is warm and dry and skin color reflects adequate perfusion. HEENT: The head is normocephalic and atraumatic. The pupils are equal and reactive. The conjunctivae are clear and without drainage. Nares are patent and without drainage. Mouth reveals moist mucous membranes and the throat is without erythema and exudate. The external ears are intact. The ear canals are patent and without drainage. The tympanic membranes are intact. Neck: The neck is tender in the paracervical area with spasm. There are no carotid bruits. There is no neck vein distension. Respiratory: Chest is non-tender. Lungs are clear to auscultation and breath sounds are symmetrical and equal. Cardiovascular: Heart is regular rate and rhythm. There is no murmur or rub auscultated. There is no peripheral edema and pulses are symmetrical and equal. Musculoskeletal: There is no back tenderness noted. Extremities are non-tender with full range of motion. There is good capillary refill. There is no peripheral edema or calf tenderness elicited. Neurological: Patient is alert and oriented to person, place and time. The patient has symmetrical motor strength in all four extremities. Cranial nerves are grossly intact. Deep tendon reflexes are symmetrical and equal in all four extremities. Psychiatric: The patient has an appropriate affect and does not exhibit any anxiety or depression. Triage Information Reviewed: Yes Vital Signs On Initial Exam: Initial Vitals Temp Pulse Resp BP Pulse Ox 96.5 F 67 17 169/96 99 05/20/19 11:40 05/20/19 11:40 05/20/19 11:40 05/20/19 11:40 05/20/19 11:40 Vital Signs Reviewed: Yes Diagnostics - Vital Signs Vital Signs Temp Pulse Resp BP Pulse Ox 05/20/19 11:40 96.5 F 67 17 169/96 99 - Laboratory Lab Statement: Any lab studies that have been ordered have been reviewed, and results considered in the medical decision making process. Headache Course/Dx - Course Course Of Treatment: Ms. Zapata presented with a typical occipital headache which she has frequently. Normally her headaches resolve with OTC treatment but this one has lasted 6 days. She was nontoxic in appearance is stable vitals. She clearly had muscle spasm in her neck. She was given a migraine cocktail of IV NS, ketorolac, diphenhydramine and metoclopramide. She did get significant improvement with this but her neck was still stiff and she was given by mouth Ativan. This helped and she will be discharged to follow-up with her PCP. - Diagnoses Provider Diagnoses: Tension headache Discharge - Sign-Out/Discharge Documenting (check all that apply): Patient Departure - Discharge home Patient Received Moderate/Deep Sedation with Procedure: No - Discharge Plan Condition: Stable Disposition: HOME Patient Education Materials: Tension Headache (ED) Referrals: Yoli Ro MD [Primary Care Provider] - Additional Instructions: Follow up with your primary care provider in 2-3 days. RETURN TO THE ED FOR ANY WORSENING OR NEW SYMPTOMS. - Billing Disposition and Condition Condition: STABLE Disposition: Home - Attestation Statements Document Initiated by Harjeet: Yes Documenting Charoibe: Anjelica Horn Provider For Whom Harjeet is Documenting (Include Credential): Baljinder Olivares MD Scribe Attestation: Anjelica Wylie, scribed for Baljinder Olivares MD on 05/20/19 at 1902. Scribe Documentation Reviewed: Yes Provider Attestation: The documentation as recorded by the Anjelica wooten accurately reflects the service I personally performed and the decisions made by me, Baljinder Olivares MD Status of Scribe Document: Viewed
[2019-05-20] MEDS ORDERED: Metoclopramide IV* 5 MG/ML 2 ML VIAL IV ONE (12:45)
[2019-05-20] MEDS ORDERED: NS 0.9% 1000 ML** 1,000 ML IV ONE (12:45)
[2019-05-20] MEDS ORDERED: diPHENhydraMINE IV* 50 MG/ML 1 ml VIAL (BENADRYL) IV ONE (12:45)
[2019-05-20] MEDS ORDERED: Ketorolac INJ* 30 MG/ML 1 ML VIAL IV PUSH ONE (12:45)
[2019-05-20] MEDS ORDERED: LORazepam TAB(*) 1 MG PO ONE (14:09)
[2019-05-20 16:32] VITALS: BP 117/81
== END 2019-05-20 16:31 | disposition home or self-care (01) ==
LOC: ED 11:38
DX: G44.209 Tension-type headache, unspecified, not intractable (principal); M54.2 Cervicalgia; Z88.0 Allergy status to penicillin; Z88.2 Allergy status to sulfonamides; Z79.899 Other long term (current) drug therapy; E03.9 Hypothyroidism, unspecified; K21.9 Gastro-esophageal reflux disease without esophagitis; J45.909 Unspecified asthma, uncomplicated; Z87.891 Personal history of nicotine dependence; F41.9 Anxiety disorder, unspecified
CPT/HCPCS: 96374; 96375; 99285; A9270-GY; J1200; J1885; J2765

== ENCOUNTER 2019-07-14 13:49 | Emergency (ER) | payer OTHER ==
[2019-07-14 14:22] VITALS: BP 143/83
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
== END 2019-07-14 14:34 | disposition home or self-care (01) ==
LOC: ED 13:49
DX: S00.93XA Contusion of unspecified part of head, initial encounter (principal); Z87.891 Personal history of nicotine dependence; X58.XXXA Exposure to other specified factors, initial encounter; Y92.9 Unspecified place or not applicable
CPT/HCPCS: 99282

== ENCOUNTER 2019-09-16 12:38 | Emergency (ER) | payer OTHER ==
[2019-09-16 12:42] VITALS: BP 153/89
--- OUTSIDE RECORDS SUMMARY | 2019-09-16 12:49 | XMS REPORT | Continuity of Care Document ---
:1965 External Reference #:[id number] Author Name Gonzalo Canales MD (transmitted by agent of provider Shelli Velazquez ) Address [address] [place] [address] Care Team Providers Name Role Phone Paulino Stone MD - Internal Care Team Information Truck Driving Instructor [phone] Medicine Yoli Ro MD - Internal Care Team Information Truck Driving Instructor Medicine Problems Description No Information Available Social History Type Date Description Comments Sex Unknown ETOH Use Denies alcohol use Tobacco Use Start: Unknown End: Patient is a former Quit 2007 Unknown smoker Recreational Drug Use Sporadically uses States she uses it Marijuana once in a while, on and off. Smoking Status Reviewed: 08/14/19 Patient is a former Quit 2007 smoker [...] Terrence Ash, 01/26/2015 10mg day M.D. Tablets Cipro 250 MG 14 days Unknown Albuterol Sulfate HFA Unknown 108(90Base) mcg/Act Aerosol Cetirizine Take One Tablet Unknown HCL/Pseudoephedrine HCL By Mouth Every ER Day 5-120mg Tablets ER 12HR Hyoscyamine Sulfate Take One Tablet Unknown 0.125mg By Mouth Every Tablets Day With Meals Cyclobenzaprine HCL Take One Tablet Unknown 10mg By Mouth Three Tablets Times A Day Levothyroxine Sodium 1 by mouth every Unknown 137mcg day Tablets Calcium + D every day as Unknown needed [id number] Chewtabs Omeprazole 1 by mouth every Unknown [...] 1 inhalation Unknown twice daily 100-50mcg/Dose Aerosol Immunizations Description No Information Available Vital Signs Date Vital Result Comment 08/14/2019 1:44pm Height 63 inches 5'3" Weight 226.00 lb BP Systolic 122 mmHg BP Diastolic 78 mmHg Pain Level 10 BMI (Body Mass Index) 40.0 kg/m2 06/05/2019 1:46pm Height 63 inches 5'3" Weight 226.00 lb Heart Rate 76 /min BP Systolic Sitting 122 mmHg BP Diastolic Sitting 72 mmHg Pain Level 10 BMI (Body Mass Index) 40.0 kg/m2 Results Test Date Facility Test Result H/L Range Note Xray 05/30/2019 [facility] Spine Entire Ap/Lat <pending> [address] [place] [address] [phone] SP Cervical 2-3 VWS <pending> MRI Cervical Spine Wo <pending> Procedures Date Code Description Status 05/31/2016 59893553 Colonoscopy Completed 06/25/2014 [id number] Mammogram Completed Medical Devices Description No Information Available Encounters Type Date Location Provider Dx Diagnosis Office Visit 06/05/2019 [facility] Jessie Win, M47.892 Other spondylosis, 1:30p [facility] cervical region Office Visit 05/10/2019 [facility] Jessie Win, M47.892 Other spondylosis, 1:00p [facility] cervical region Office Visit 03/04/2019 [facility] Peggy M18.11 Unil primary 2:30p at Christopher Menjivar M.D. 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 encounter Plan of Treatment Future Appointment(s):12/13/2019 11:00 am - Gonzalo Canales MD at [facility]08/14/2019 - Gonzalo Canales MDM47.892 Other spondylosis, cervical regionNew Therapy:Physical TherapyFollow up:RV in 3-4 askivlX32.22 Other spondylosis with radiculopathy, cervical sjeakxN64.202 Unspecified kyphosis, cervical region Functional Status Description No Information Available Mental Status Description No Information Available Referrals Description No Information Available
--- OUTSIDE RECORDS SUMMARY | 2019-09-16 12:49 | XMS REPORT | Continuity of Care Document ---
:1965 External Reference #:[id number] Author Name Melinda Malone MD Address [address] [place] [address] Care Team Providers Name Role Phone Yoli Ro Care Team Information Bottom Turner [phone] Problems Active Problems Provider Date Disorder of menstruation Sonya Gamez MD Onset: 07/31/2012 Female stress incontinence Melinda Malone MD Onset: 08/07/2019 Atypical squamous cells of undetermined Donine Sheffield M.D. Onset: 08/07/2019 significance on cervical Papanicolaou smear Social History Type Date Description Comments Sex Unknown Tobacco Use Start: Unknown End: Unknown Patient is a former smoker Smoking Status Reviewed: 08/13/19 Patient is a former smoker Allergies, Adverse Reactions, Alerts Active Allergies Reaction Severity Comments Date Penicillin 03/17/2008 Sulfa 03/17/2008 Amoxicillin 07/31/2012 Erythromycin 07/31/2012 Keflex do 07/31/2012 Doxycycline 07/31/2012 Ceclor 07/31/2012 Ibuprofen 07/31/2012 Hydrocodone 07/31/2012 Contrast Dye 07/31/2012 Novocain 07/31/2012 Latex sensitive 05/25/2015 Adhesives 05/25/2015 Tape 05/25/2015 Levaquin 05/25/2015 Medications Active Medications SIG Qnty Indications Ordering Provider Date Ventolin HFA Q4H Unknown 05/27/2016 108(90Base) mcg/Act Aerosol Buspirone HCL Twice Daily Unknown 10/29/2014 10mg Tablets Advair Diskus Twice Daily Unknown 10/29/2014 100-50mcg/Dose Aerosol Singulair Every Day Unknown 10/29/2014 5mg Chewtabs Synthroid Every Day Unknown 05/02/2013 25mcg Tablets Prozac Every Day Unknown 05/02/2013 20mg Capsules Montelukast Sodium Unknown Fluoxetine HCL Unknown Levothyroxine Sodium Unknown Magnesium Oxide Unknown Omeprazole Unknown Levalbuterol HCL Unknown Anti-Diarrheal Unknown Medications Administered in Office Medication SIG Qnty Indications Ordering Provider Date PT SCRN Tbco Id as Non User Melinda Malone MD 08/13/2019 Injection Immunizations Description No Information Available Vital Signs Date Vital Result Comment 08/13/2019 12:55pm BP Systolic 124 mmHg BP Diastolic 78 mmHg Height 63 inches 5'3" Weight 221.00 lb BMI (Body Mass Index) 39.1 kg/m2 Last Menstrual Period 4399112 6 Parity 6 04/28/2017 9:30am BP Systolic 120 mmHg BP Diastolic 76 mmHg Height 63 inches 5'3" Weight 244.00 lb BMI (Body Mass Index) 43.2 kg/m2 Last Menstrual Period 6548160 6 Parity 6 Results Test Date Facility Test Result H/L Range Note Laboratory test 08/13/2019 [facility] Cytology <pending> [place] [address] [phone] Procedures Date Code Description Status 06/07/2019 [id number] Mammogram Completed 05/31/2016 [id number] Colonoscopy Completed Medical Devices Description No Information Available Encounters Type Date Location Provider Dx Diagnosis Office Visit 08/13/2019 [facility] Melinda Malone, Z01.411 Encntr for yarn salvager exam 1:00p (general) (routine) w abnormal findings Z80.41 Family history of malignant neoplasm of ovary N39.3 Stress incontinence (female) (male) Assessments Date Code Description Provider 08/13/2019 Z01.411 Encounter for gynecological examination Melinda Malone MD (general) (routine) with abnormal findings 08/13/2019 Z80.41 Family history of malignant neoplasm of ovary Melinda Malone MD 08/13/2019 N39.3 Stress incontinence (female) (male) Melinda Malone MD Plan of Treatment 08/13/2019 - Melinda Malone MDZ01.411 Encounter for gynecological examination (general) (routine) with abnormal findingsComments:Maintain routine exercise and healthy diet. Incorporate weight bearing exercise (walking/running with weights) to help prevent osteoporosis. Try to incorporate calcium into your regular diet. Take Vitamin D supplementation(600-800 IU/day) to assist absorption of the calcium. Call to schedule your yearly mammogram. Once it is scheduled call the office to let us know and we will send an order.Perform periodic breast exams to become familiar with your breast tissue so you are more likely to notice something abnormal. Return for annual exam in 1 year or earlier if concerns arise. Routine cervical cancer screening has changed. For low-risk women pap smears are no longer recommended after 65 years.Z80.41 Family history of malignant neoplasm of ovaryComments:Will do genetic testing with f/u uzhqxI29.3 Stress incontinence (female) (male)Comments: Try to do routine Kegel exercises. Functional Status Description No Information Available Mental Status Description No Information Available Referrals Description No Information Available
--- NOTE | 2019-09-16 14:44 | ED ---
Throat Pain/Nasal Congestion - HPI Summary HPI Summary: Pt. is a 54 y.o female who presents to the ER for dental pain for several days. Patient states her tooth broke a few days ago and isn't having pain since. Patient states she does not have a dentist. She has numerous adverse reactions to antibiotics. Patient denies fever, chills, nausea, vomiting, facial swelling. Symptoms are mild in severity. Touching tooth makes symptoms worse. Nothing makes symptoms better. History was obtained from patient's significant other has patient did not want to answer my questions on exam and was not cooperative. Reviewed past ER visits and patient had a similar affect at that time according to ER notes. - History of Current Complaint Chief Complaint: EDDentalPain Time Seen by Provider: 09/16/19 14:36 Hx Obtained From: Patient, Family/Mud Engineer - Allergies/Home Medications Allergies/Adverse Reactions: Allergies Allergy/AdvReac Type Severity Reaction Status Date / Time Adhesive Tape [Paper Tape] Allergy Mild Rash Verified 09/16/19 12:43 adhesive tape Allergy Rash Verified 09/16/19 12:43 amoxicillin Allergy GI Upset Verified 09/16/19 12:43 azithromycin Allergy GI Upset Verified 09/16/19 12:43 cefaclor Allergy GI Upset Verified 09/16/19 12:43 cephalexin Allergy GI Upset Verified 09/16/19 12:43 doxycycline Allergy GI Upset Verified 09/16/19 12:43 erythromycin base Allergy GI Upset Verified 09/16/19 12:43 hydrocodone Allergy GI Upset Verified 09/16/19 12:43 ibuprofen Allergy GI Upset Verified 09/16/19 12:43 Iodinated Contrast Media Allergy Hives Verified 09/16/19 12:43 [Iodinated Contrast- Oral and IV Dye] latex Allergy Rash Verified 09/16/19 12:43 levofloxacin Allergy Dizziness Verified 09/16/19 12:43 Penicillins Allergy GI Upset Verified 09/16/19 12:43 procaine Allergy Agitation Verified 09/16/19 12:43 Sulfa (Sulfonamide Allergy Blisters Verified 09/16/19 12:43 Antibiotics) yellow dye Allergy GI Upset Verified 09/16/19 12:43 PMH/Surg Hx/FS Hx/Imm Hx Previously Healthy: Yes Endocrine/Hematology History: Reports: Hx Thyroid Disease - HYPO Denies: Hx Diabetes Cardiovascular History: Denies: Hx Hypertension, Hx Pacemaker/ICD Respiratory History: Reports: Hx Asthma Denies: Hx Chronic Obstructive Pulmonary Disease (COPD) GI History: Reports: Hx Gastroesophageal Reflux Disease, Hx Hiatal Hernia Denies: Hx Ulcer History: Denies: Hx Dialysis, Hx Renal Disease Musculoskeletal History: Reports: Hx Arthritis - "ALL OVER", Other Musculoskeletal History - DDD Sensory History: Reports: Hx Contacts or Glasses - GLASSES Denies: Hx Hearing Aid Opthamlomology History: Reports: Hx Contacts or Glasses - GLASSES Psychiatric History: Reports: Hx Anxiety - ON DAILY MEDS, Hx Depression, Hx Panic Disorder, Hx Bipolar Disorder - Cancer History Hx Chemotherapy: No Hx Radiation Therapy: No - Surgical History Surgery Procedure, Year, and Place: OPEN KEYANA AND APPY 1987. HERNIA REPAIR 1996. RT KNEE SURGERY 2005 [facility] [place]. LAP HERNIA REPAIR 2014 [facility] Hx Anesthesia Reactions: No Infectious Disease History: No Infectious Disease History: Reports: Hx Shingles Denies: Hx Clostridium Difficile, Hx Hepatitis, Hx Human Immunodeficiency Virus (HIV), Hx of Known/Suspected MRSA, Hx Tuberculosis, Hx Known/Suspected VRE , Hx Known/Suspected VRSA, History Other Infectious Disease, Traveled Outside the [place] in Last 30 Days - Family History Known Family History: Positive: None - reviewed & noncontributory, Diabetes, Other - breast cancer, Non-Contributory - Social History Occupation: Unemployed Lives: With Family Alcohol Use: None Hx Substance Use: No Substance Use Type: Reports: None Hx Tobacco Use: Yes Smoking Status (MU): Former Smoker Type: Cigarettes Amount Used/How Often: 1/2 PPD Length of Time of Smoking/Using Tobacco: 10 YRS Have You Smoked in the Last Year: No Review of Systems Constitutional: Negative Negative: Fever, Chills Positive: Dental Pain Gastrointestinal: Negative All Other Systems Reviewed And Are Negative: Yes Physical Exam Triage Information Reviewed: Yes Vital Signs On Initial Exam: Initial Vitals Temp Pulse Resp BP Pulse Ox 97.5 F 90 16 153/89 96 09/16/19 12:40 09/16/19 12:40 09/16/19 12:40 09/16/19 12:40 09/16/19 12:40 Vital Signs Reviewed: Yes Appearance: Positive: Well-Appearing - Pt. sitting on bed looking at cellphone. In NAD. SO present. Skin: Positive: Warm, Dry Head/Face: Positive: Normal Head/Face Inspection Eyes: Positive: Normal, EOMI Dental: Positive: Other - Poor dentition throughout. Fractured left lateral incisor. Gingiva erythematous. no drainable abscess. no trismus or facial/neck edema. Neck: Positive: Supple, Nontender, No Lymphadenopathy Neurological: Positive: Normal, CN Intact II-III Psychiatric: Positive: Affect/Mood Appropriate Procedures - Sedation Patient Received Moderate/Deep Sedation with Procedure: No Diagnostics - Vital Signs Vital Signs Temp Pulse Resp BP Pulse Ox 09/16/19 12:40 97.5 F 90 16 153/89 96 - Laboratory Lab Statement: Any lab studies that have been ordered have been reviewed, and results considered in the medical decision making process. EENT Course/Dx - Course Course Of Treatment: Patient presenting with dental fracture and worsening pain. Patient states the only antibiotic she can take is clindamycin. Advised Tylenol for pain. Patient given a list of local dentists and advised to follow up as soon as possible. We'll return to the ER symptoms change or worsen. - Diagnoses Provider Diagnoses: Broken tooth, Dentalgia Discharge ED - Sign-Out/Discharge Documenting (check all that apply): Patient Departure - Discharge Plan Condition: Good Disposition: HOME Prescriptions: Clindamycin Cap(NF) [Clindamycin Cap 300 mg Cap(NF)] 300 mg PO Q6H #40 cap Patient Education Materials: Toothache (ED) Referrals: Yoli Ro MD [Primary Care Provider] - Additional Instructions: Please see a dentist as soon as possible Tylenol for pain as directed Return to ER if symptoms change or worsen - Billing Disposition and Condition Condition: GOOD Disposition: Home
== END 2019-09-16 15:50 | disposition home or self-care (01) ==
LOC: ED 12:38
DX: K03.81 Cracked tooth (principal); K08.89 Other specified disorders of teeth and supporting structures; F41.9 Anxiety disorder, unspecified; Z88.6 Allergy status to analgesic agent; Z88.4 Allergy status to anesthetic agent; Z88.1 Allergy status to other antibiotic agents; Z91.041 Radiographic dye allergy status; Z91.040 Latex allergy status; Z88.5 Allergy status to narcotic agent; Z88.0 Allergy status to penicillin; Z88.2 Allergy status to sulfonamides; Z91.048 Other nonmedicinal substance allergy status; Z87.891 Personal history of nicotine dependence
CPT/HCPCS: 99281

== ENCOUNTER 2019-12-17 16:49 | Emergency (ER) | payer OTHER ==
--- OUTSIDE RECORDS SUMMARY | 2019-12-17 17:05 | XMS REPORT ---
:1965 Author Organization [facility] Care Team Providers Name Role Phone LENO CHOPRA Primary Care Physician Unavailable Allergies, Adverse Reactions, Alerts Allergy Code CodeSystem Reaction Severity Criticality Status Start Substance Date Moderate Medications Medication Medication Medication Start Stop Route Dose Status Fill Code CodeSystem Date Date Instructions RxNorm Problems Problem Name Code CodeSystem Alternate Alternate Start End Status Narrative Code CodeSystem Date Date Unspecified 25747704 SNOMED-CT Active anxiety 3-22 disorder Recurrent 03494604 SNOMED-CT Active depressive 6-13 disorder, current episode moderate Unspecified 44101036 SNOMED-CT Active anxiety 3-22 disorder Unspecified 67599898 SNOMED-CT Active anxiety 3-22 disorder Relevant diagnostic tests/laboratory data Narrative No Information Procedures Procedure Code CodeSystem Target Date of Status Service Device Device Device Name Site Procedure Delivery Code Name UID Location Psychother [id number] SNOMED-CT () 2019-10-22 completed Mental apy, 45 4 Health- minutes [place] with [facility] patient [address] [place] [address], [id number] [phone] Psychother 4371595 SNOMED-CT () 2019-08-13 completed Mental apy, 45 4 Health- minutes [place] with [facility] patient [address] [place] [address], [phone] Psychother 2006111 SNOMED-CT () 2019-08-29 completed Mental apy, 45 4 Health- minutes [place] with [facility] patient [address] [place] [address], [id number] [phone] Psychother 7886911 SNOMED-CT () 2019-06-03 completed Mental apy, 45 4 Health- minutes [place] with [facility] patient [address] [place] [address], [phone] Psychother 8993724 SNOMED-CT () 2019-05-21 completed Mental apy, 45 4 Health- minutes [place] with [facility] patient [address] [place] [address], [id number] [phone] Psychother 2202452 SNOMED-CT () 2019-07-03 completed Mental apy, 45 4 Health- minutes [place] with [facility] patient [address] [place] [address], [phone] SNOMED-CT () 2019-07-30 completed Mental Health- [address], [id number] [id number] SNOMED-CT () 2019-09-13 completed Mental Health[address], [id number] [phone] SNOMED-CT () 2019-06-18 completed [facility], [id number] [phone] SNOMED-CT () 2019-04-25 completed [facility], [phone] [phone] SNOMED-CT () 2019-04-29 completed Mental Health[address], [phone] [phone] Encounters/Encounter Diagnoses Encounter Name Encounter Diagnosis Diagnosis Diagnosis Date of Service Code Code Name CodeSystem Diagnosis Delivery Location Psychotherapy - 06905 [id number] Recurrent SNOMED-CT 2019-10-22 Behavioral Individual 30 depressive Health min disorder, Clinic [address] [place], [place], [id number] Vital Signs No Information Social History Element Description Description Start End Code CodeSystem AdditionalInfo Date Date SexAssignedAtBirth Female 1965-1 F AdministrativeGender 0-09 Hospital Discharge Instructions Reason For Referral Medical Equipment FDA Assessments
--- OUTSIDE RECORDS SUMMARY | 2019-12-17 17:05 | XMS REPORT ---
:1965 Author Organization [facility] Care Team Providers Name Role Phone LENO CHOPRA Primary Care Physician Unavailable Allergies, Adverse Reactions, Alerts Allergy Code CodeSystem Reaction Severity Criticality Status Start Substance Date Moderate Medications Medication Medication Medication Start Stop Route Dose Status Fill Code CodeSystem Date Date Instructions RxNorm Problems Problem Name Code CodeSystem Alternate Alternate Start End Status Narrative Code CodeSystem Date Date Unspecified 48973521 SNOMED-CT Active anxiety 3-22 disorder Recurrent 43232033 SNOMED-CT Active depressive 6-13 disorder, current episode moderate Unspecified 60036167 SNOMED-CT Active anxiety 3-22 disorder Unspecified 34241176 SNOMED-CT Active anxiety 3-22 disorder Relevant diagnostic tests/laboratory data Narrative No Information Procedures Procedure Code CodeSystem Target Date of Status Service Device Device Device Name Site Procedure Delivery Code Name UID Location Psychother [id number] SNOMED-CT () 2019-08-13 completed Mental apy, 45 4 Health- minutes [place] with [facility] patient [address] [place] [address], [phone] Psychother 0792886 SNOMED-CT () 2019-08-29 completed Mental apy, 45 4 Health- minutes [place] with [facility] patient [address] [place] [address], [phone] Psychother 8740186 SNOMED-CT () 2019-07-03 completed Mental apy, 45 4 Health- minutes [place] with [facility] patient [address] [place] [address], [phone] Psychother 5318153 SNOMED-CT () 2019-10-22 completed Mental apy, 45 4 Health- minutes [place] with [facility] patient [address] [place] [address], [phone] Psychother 9780606 SNOMED-CT () 2019-11-20 completed Mental apy, 45 4 Health- minutes [place] with [facility] patient [address] [place] [address], [id number] [phone] Psychother 4818760 SNOMED-CT () 2019-12-03 completed Mental apy, 45 4 Health- minutes [place] with [facility] patient [address] [place] [address], [phone] Psychother 2031574 SNOMED-CT () 2019-06-03 completed Mental apy, 45 4 Health- minutes [place] with [facility] patient [address] [place] [address], [phone] Psychother 8676213 SNOMED-CT () 2019-05-21 completed Mental apy, 45 4 Health- minutes [place] with [facility] patient [address] [place] [address], [id number] [phone] SNOMED-CT () 2019-09-13 completed Mental Health- [address], [phone] SNOMED-CT () 2019-07-30 completed Mental Health- [address], [id number] [phone] SNOMED-CT () 2019-06-18 completed Mental Health- [address], [id number] [phone] SNOMED-CT () 2019-04-25 completed Mental Health- [address], [id number] [phone] SNOMED-CT () 2019-04-29 [facility] Mental Health- [address], [phone] Encounters/Encounter Diagnoses Encounter Name Encounter Diagnosis Diagnosis Diagnosis Date of Service Code Code Name CodeSystem Diagnosis Delivery Location Psychotherapy - 20792 [id number] Recurrent SNOMED-CT 2019-12-03 Behavioral Individual 30 depressive Health min disorder, Clinic [address] [place] [address], [phone] Vital Signs No Information Social History Element Description Description Start End Code CodeSystem AdditionalInfo Date Date SexAssignedAtBirth Female 1965-1 F AdministrativeGender 0-09 Hospital Discharge Instructions Reason For Referral Medical Equipment FDA Assessments
--- OUTSIDE RECORDS SUMMARY | 2019-12-17 17:05 | XMS REPORT | Continuity of Care Document ---
:1965 External Reference #:[id number] Author Name Gonzalo Canales MD (transmitted by agent of provider Shelli Velazquez ) Address [address] [place] [place] [address] Care Team Providers Name Role Phone Paulino Stone MD - Internal Care Team Information Graduate Teacher Education Medicine Yoli Ro MD - Internal Care Team Information Graduate Teacher Education Medicine Problems Description No Information Available Social History Type Date Description Comments Sex Unknown ETOH Use Denies alcohol use Tobacco Use Start: Unknown End: Patient is a former Quit 2007 Unknown smoker Recreational Drug Use Sporadically uses States she uses it Marijuana once in a while, on and off. Recreational Drug Use Denies Drug Use Smoking Status Reviewed: 12/13/19 Patient is a former Quit 2007 smoker Exercise Type/Frequency Exercises sporadically more often now Exercise Type/Frequency Exercises regularly Exercise Type/Frequency walking even with sore foot Allergies, Adverse Reactions, Alerts Active Allergies Reaction Severity Comments Date Tape 01/26/2015 Latex 01/26/2015 Penicillin 01/26/2015 Amoxicillin 01/26/2015 Erythromycin 01/26/2015 Doxycycline 01/26/2015 Ceclor 01/26/2015 Contrast Dye 01/26/2015 Yellow Dye 01/26/2015 Levofloxacin 01/26/2015 Levaquin 09/26/2016 Penicillin 09/26/2016 Sulfa Antibiotics 09/26/2016 Hydrocodone 09/26/2016 Ibuprofen 03/04/2019 Medications Active Medications SIG Qnty Indications Ordering Date Provider Atorvastatin Calcium 1 by mouth every Unknown 11/27/2018 40mg day Tablets Montelukast Sodium 1 by mouth every 90tabs [...] + D every day as Unknown needed [id number] Chewtabs Omeprazole 1 by mouth every Unknown 20mg Capsules DR day Anti-Diarrheal use as directed.. Unknown 2mg Tablets Sinus Relief as directed Unknown 0.05% Solution Levalbuterol HCL As Directed Unknown 0.31mg/3ML Nebulizer Buspirone HCL twice a day Unknown 10mg Tablets Magnesium Oxide by mouth every Unknown 400mg day Capsules Fluoxetine HCL 1 by mouth every Unknown 40mg day Capsules Advair Diskus 1 inhalation Unknown twice daily 100-50mcg/Dose Aerosol Immunizations Description No Information Available Vital Signs Date Vital Result Comment 12/13/2019 10:53am Height 63 inches 5'3" Weight 217.00 lb Heart Rate 68 /min BP Systolic 148 mmHg BP Diastolic 90 mmHg Pain Level 10 neck down through arm on right side BMI (Body Mass Index) 38.4 kg/m2 08/14/2019 1:44pm Height 63 inches 5'3" Weight 226.00 lb BP Systolic 122 mmHg BP Diastolic 78 mmHg Pain Level 10 BMI (Body Mass Index) 40.0 kg/m2 Results Description No Information Available Procedures Date Code Description Status 05/31/2016 23084295 Colonoscopy Completed 06/25/2014 37041229 Mammogram Completed Medical Devices Description No Information Available Encounters Type Date Location Provider Dx Diagnosis Office Visit 12/13/2019 [facility] M47.892 Other 11:00a [facility] Canales MD spondylosis, cervical region M47.22 Other spondylosis with radiculopathy, cervical region M40.202 Unspecified kyphosis, cervical region Office Visit 08/14/2019 [facility] M47.892 Other 1:30p [facility] Canales MD spondylosis, cervical region M47.22 Other spondylosis with radiculopathy, cervical region M40.202 Unspecified kyphosis, cervical region Assessments Date Code Description Provider 12/13/2019 M47.892 Cervical spondylchepe Canales MD 12/13/2019 M47.22 Other spondylosis with radiculopathy, Gonzalo Canales MD cervical region 12/13/2019 M40.202 Unspecified kyphosis, cervical region Gonzalo Canales MD 08/14/2019 M47.892 Cervical spondylchepe Canales MD 08/14/2019 M47.22 Other spondylosis with radiculopathy, Gonzalo Canales MD cervical region 08/14/2019 M40.202 Unspecified kyphosis, cervical region Gonzalo Canales MD Plan of Treatment 12/13/2019 - Gonzalo Canales, [facility]47.892 Other spondylosis, cervical hpfpusN70.22 Other spondylosis with radiculopathy, cervical regionFollow up:RV prnM40.202 Unspecified kyphosis, cervical region Functional Status Description No Information Available Mental Status Description No Information Available Referrals Description No Information Available
[2019-12-17] MEDS ORDERED: Ketorolac INJ* 30 MG/ML 1 ML VIAL IM ONE (19:42)
[2019-12-17] MEDS ORDERED: Diazepam TAB(*) 5 MG PO ONE (19:42)
--- NOTE | 2019-12-17 19:44 | ED ---
Back Pain - HPI Summary HPI Summary: Patient with history of chronic neck and back pain complains of increase in chronic pain after she almost fell while trying to get on a bus. Patient was caught from behind, no actual fall. Denies any other pain, injury symptoms. Denies urinary retention, loss of bowel control, pain radiation into the legs. Patient ambulatory. - History of Current Complaint Chief Complaint: EDBackInjuryPain Stated Complaint: NECK AND BACK INJURY PER PT Time Seen by Provider: 12/17/19 19:30 Hx Obtained From: Patient, Family/Care Clinician Hx Last Menstrual Period: 03/16/17 Onset/Duration: Sudden Onset, Lasting Hours Onset/Duration: Started Hours Ago Timing: Constant Severity Initially: Severe Severity Currently: Severe Pain Intensity: 10 Pain Scale Used: 0-10 Numeric Character: Sharp, Throbbing Aggravating Symptom(s): Movement, Bending, Walking Alleviating Symptom(s): Rest, Position Associated Signs And Symptoms: Positive: Negative - Allergies/Home Medications Allergies/Adverse Reactions: Allergies Allergy/AdvReac Type Severity Reaction Status Date / Time Adhesive Tape [Paper Tape] Allergy Mild Rash Verified 09/16/19 12:43 adhesive tape Allergy Rash Verified 09/16/19 12:43 amoxicillin Allergy GI Upset Verified 09/16/19 12:43 azithromycin Allergy GI Upset Verified 09/16/19 12:43 cefaclor Allergy GI Upset Verified 09/16/19 12:43 cephalexin Allergy GI Upset Verified 09/16/19 12:43 doxycycline Allergy GI Upset Verified 09/16/19 12:43 erythromycin base Allergy GI Upset Verified 09/16/19 12:43 hydrocodone Allergy GI Upset Verified 09/16/19 12:43 ibuprofen Allergy GI Upset Verified 09/16/19 12:43 Iodinated Contrast Media Allergy Hives Verified 09/16/19 12:43 [Iodinated Contrast- Oral and IV Dye] latex Allergy Rash Verified 09/16/19 12:43 levofloxacin Allergy Dizziness Verified 09/16/19 12:43 Penicillins Allergy GI Upset Verified 09/16/19 12:43 procaine Allergy Agitation Verified 09/16/19 12:43 Sulfa (Sulfonamide Allergy Blisters Verified 09/16/19 12:43 Antibiotics) yellow dye Allergy GI Upset Verified 09/16/19 12:43 PMH/Surg Hx/FS Hx/Imm Hx Endocrine/Hematology History: Reports: Hx Thyroid Disease - HYPO Denies: Hx Diabetes Cardiovascular History: Denies: Hx Hypertension, Hx Pacemaker/ICD Respiratory History: Reports: Hx Asthma Denies: Hx Chronic Obstructive Pulmonary Disease (COPD) GI History: Reports: Hx Gastroesophageal Reflux Disease, Hx Hiatal Hernia Denies: Hx Ulcer History: Denies: Hx Dialysis, Hx Renal Disease Musculoskeletal History: Reports: Hx Arthritis - "ALL OVER", Other Musculoskeletal History - DDD Sensory History: Reports: Hx Contacts or Glasses - GLASSES Denies: Hx Hearing Aid Opthamlomology History: Reports: Hx Contacts or Glasses - GLASSES Psychiatric History: Reports: Hx Anxiety - ON DAILY MEDS, Hx Depression, Hx Panic Disorder, Hx Bipolar Disorder - Cancer History Hx Chemotherapy: No Hx Radiation Therapy: No - Surgical History Surgery Procedure, Year, and Place: OPEN KEYANA AND APPY 1987. HERNIA REPAIR 1996. RT KNEE SURGERY 2005 [facility] [place]. LAP HERNIA REPAIR 2013 [facility] [place] Hx Anesthesia Reactions: No Infectious Disease History: No Infectious Disease History: Reports: Hx Shingles Denies: Hx Clostridium Difficile, Hx Hepatitis, Hx Human Immunodeficiency Virus (HIV), Hx of Known/Suspected MRSA, Hx Tuberculosis, Hx Known/Suspected VRE , Hx Known/Suspected VRSA, History Other Infectious Disease, Traveled Outside the [place] in Last 30 Days - Family History Known Family History: Positive: None - reviewed & noncontributory, Diabetes, Other - breast cancer, Non-Contributory - Social History Alcohol Use: None Hx Substance Use: No Substance Use Type: Reports: None Hx Tobacco Use: Yes Smoking Status (MU): Former Smoker Type: Cigarettes Amount Used/How Often: 1/2 PPD Length of Time of Smoking/Using Tobacco: 10 YRS Have You Smoked in the Last Year: No Review of Systems Constitutional: Negative Eyes: Negative ENT: Negative Cardiovascular: Negative Respiratory: Negative Gastrointestinal: Negative Genitourinary: Negative Musculoskeletal: Other Skin: Negative Neurological: Negative Psychological: Normal All Other Systems Reviewed And Are Negative: Yes Physical Exam - Summary Physical Exam Summary: Tenderness along bilateral trapezius and bilateral paraspinal muscles of C-spine , thoracic spine. PMS intact distally bilateral lower extremities and bilateral upper extremities. Triage Information Reviewed: Yes Vital Signs On Initial Exam: Initial Vitals Temp Pulse Resp BP Pulse Ox 98.3 F 78 18 165/94 97 12/17/19 16:54 12/17/19 16:54 12/17/19 16:54 12/17/19 16:54 12/17/19 16:54 Vital Signs Reviewed: Yes Appearance: Positive: Well-Appearing Skin: Positive: Warm Head/Face: Positive: Normal Head/Face Inspection Eyes: Positive: Normal Neck: Positive: Supple Respiratory/Lung Sounds: Positive: Clear to Auscultation Cardiovascular: Positive: Normal Abdomen Description: Positive: Nontender Musculoskeletal: Positive: Normal Neurological: Positive: Normal Psychiatric: Positive: Normal AVPU Assessment: Alert - [place] Coma Scale Best Eye Response: 4 - Spontaneous Best Motor Response: 6 - Obeys Commands Best Verbal Response: 5 - Oriented Coma Scale Total: 15 Procedures - Sedation Patient Received Moderate/Deep Sedation with Procedure: No Diagnostics - Vital Signs Vital Signs Temp Pulse Resp BP Pulse Ox 12/17/19 18:34 98.2 F 74 18 139/75 95 12/17/19 16:54 98.3 F 78 18 165/94 97 - Laboratory Lab Statement: Any lab studies that have been ordered have been reviewed, and results considered in the medical decision making process. Back Pain Course/Dx - Course Course Of Treatment: Patient with history of chronic neck and back pain complains of increase in chronic pain after she almost fell while trying to get on a bus. Patient was caught from behind, no actual fall. Denies any other pain, injury symptoms. Denies urinary retention, loss of bowel control, pain radiation into the legs. Patient ambulatory. Vital signs and normal limits. Patient's symptoms improved with Toradol IM and Valium by mouth. X-rays C- spine negative for acute process. - Diagnoses Provider Diagnoses: Back muscle spasm Discharge ED - Sign-Out/Discharge Documenting (check all that apply): Patient Departure - Discharge Plan Condition: Stable Disposition: HOME Prescriptions: Cyclobenzaprine TAB* [Flexeril 10 MG TAB*] 10 mg PO TID PRN 4 Days #12 tab PRN Reason: Spasms Patient Education Materials: Muscle Spasm (ED) Referrals: Yoli Ro MD [Primary Care Provider] - Additional Instructions: Take Flexeril as directed for muscle spasm. Also take Tylenol. Rest. Follow- up with primary care. Return to the ED for any new or worsening symptoms. - Billing Disposition and Condition Condition: STABLE Disposition: Home - Attestation Statements Provider Attestation: I was available for consult. This patient was seen by the JUAN. The patient was not presented to, seen by, or examined by me. Calixto Eduardo MD
[2019-12-17 21:03] VITALS: BP 136/85
== END 2019-12-17 21:02 | disposition home or self-care (01) ==
LOC: ED 16:49
DX: M62.830 Muscle spasm of back (principal); M50.31 Other cervical disc degeneration, high cervical region; M48.02 Spinal stenosis, cervical region; E03.9 Hypothyroidism, unspecified; J45.909 Unspecified asthma, uncomplicated; K21.9 Gastro-esophageal reflux disease without esophagitis; F41.9 Anxiety disorder, unspecified; F32.9 Major depressive disorder, single episode, unspecified; Z88.6 Allergy status to analgesic agent; Z88.4 Allergy status to anesthetic agent; Z88.1 Allergy status to other antibiotic agents; Z91.041 Radiographic dye allergy status; Z91.040 Latex allergy status; Z88.5 Allergy status to narcotic agent; Z88.0 Allergy status to penicillin; Z88.2 Allergy status to sulfonamides; Z91.048 Other nonmedicinal substance allergy status; Z91.09 Other allergy status, other than to drugs and biological substances; Z87.891 Personal history of nicotine dependence
CPT/HCPCS: 72050; 96372; 99282; A9270-GY; J1885

== ENCOUNTER 2020-01-17 13:35 | Emergency (ER) | payer OTHER ==
[2020-01-17 15:04] LABS: ABS Lymphocytes 1.2 10^3/ul (1.0-4.8); ABS Monocytes 0.7 10^3/ul (0-0.8); ABS Neutrophils 4.9 10^3/ul (1.5-7.7); Eosinophil % 0.6 %; Hematocrit 37 % (35-47); Hemoglobin 12.4 g/dL (12.0-16.0); Lymphocyte % 17.6 %; Mean Corpuscular HGB Conc 34 g/dL (31-36); Mean Corpuscular Hemoglobin 29 pg (27-31); Mean Corpuscular Volume 86 fL (80-97); Mean Platelet Volume 8.5 fL (7.4-10.4); Platelet Count 192 10^3/uL (150-450); Red Cell Distribution Width 14 % (10-15); White Blood Count 6.8 10^3/uL (3.5-10.8)
[2020-01-17 15:18] LABS: Albumin 4.1 g/dL (3.2-5.2); Albumin/Globulin Ratio 1.4 (1-3); C Reactive Protein 14.12 mg/L (<8.01); Calcium 9.2 mg/dL (8.6-10.3); EGFR African American 85.5 (>60); EGFR Non-African American 70.7 (>60); Potassium 4.3 mmol/L (3.5-5.0); Total Bilirubin 0.4 mg/dL (0.2-1.0); Total Protein 7.1 g/dL (6.4-8.9)
[2020-01-17] MEDS ORDERED: Albuterol/Ipratropium NEB.SOL* Albuterol 2.5 MG/Ipratropium 0.5 MG 3 ML INH ONE (15:34)
--- NOTE | 2020-01-17 16:09 | ED ---
HPI Cardiac - HPI Summary HPI Summary: 54 year old F presenting [place] [facility] accompanied by male physician executive complains of a dry cough and runny nose for 3 days. Patient denies fever. Patient has a history of asthma. No social history of alcohol or drugs. Patient smoked in the past. Family history of grandmother with COPD. The patient rates the pain 10/10 in severity. Symptoms aggravated by nothing. Symptoms alleviated by nothing. Medications reviewed. Allergies noted. Home Medications Medication Instructions Recorded Confirmed Type FLUoxetine CAP* [Prozac CAP*] 40 mg PO DAILY 05/02/13 12/17/19 History busPIRone TAB* [Buspar TAB*] 10 mg PO BID 10/29/14 12/17/19 History Albuterol HFA INHALER* [Ventolin 2 puff INH Q6H PRN 05/20/19 12/17/19 History HFA Inhaler*] Calcium Carbonate/Vitamin D3 1 tab PO BID 05/20/19 12/17/19 History [Calcium Carbonate/Vitamin] Cetirizine HCl/Pseudoephedrine 1 tab PO DAILY 05/20/19 12/17/19 History [Cetirizine HCl/Pseudoephe 5-120 mg] Cyclobenzaprine TAB* [Flexeril 10 10 mg PO TID PRN 05/20/19 12/17/19 History MG TAB*] Fluticasone-Salmeterol 250-50* 1 puff INH BID 05/20/19 12/17/19 History [Advair Diskus 250-50*] Hyoscyamine TAB* [Anaspaz 0.125 MG 0.125 mg PO DAILY WITH MEAL 05/20/19 History TAB*] Ketotifen Fumarate 5 ml OPHTHALMIC BID PRN 05/20/19 12/17/19 History Latanoprost 0.005%* [Xalatan 1 drop OPHTHALMIC BEDTIME 05/20/19 12/17/19 History 0.005%*] Levalbuterol 1.25MG/0.5ML NEB* 1.25 mg INH .Q4-6H PRN 05/20/19 12/17/19 History [Xopenex 1.25 MG/0.5 ML NEB.GUY*] Levothyroxine TAB* [Synthroid TAB*] 137 mcg PO DAILY 05/20/19 12/17/19 History Magnesium Oxide TAB* [MagOx 400 400 mg PO DAILY 05/20/19 12/17/19 History TAB*] Omeprazole (Nf) [Prilosec (NF)] 40 mg PO DAILY 05/20/19 12/17/19 History Ranitidine TAB (NF) [Zantac TAB 150 mg PO BID 05/20/19 12/17/19 History (NF)] hydrOXYzine HCL TAB* [Atarax 25 MG 25 - 50 mg PO BEDTIME PRN 05/20/19 12/17/19 History TAB*] traMADol TAB* [Ultram*] 50 mg PO QID 05/20/19 12/17/19 History Clindamycin Cap(NF) [Clindamycin 300 mg PO Q6H #40 cap 09/16/19 12/17/19 Rx Cap 300 mg Cap(NF)] Cyclobenzaprine TAB* [Flexeril 10 10 mg PO TID PRN 4 Days #12 tab 12/17/19 Rx MG TAB*] - History of Current Complaint Chief Complaint: EDUpperRespComplaint Stated Complaint: GENERAL ILLNESS PER PT Time Seen by Provider: 01/17/20 15:27 Hx Obtained From: Patient Hx Last Menstrual Period: 03/16/17 Onset/Duration: Started Days Ago, Still Present Timing: Constant Pain Intensity: 10 Aggravating Factor(s): Nothing Alleviating Factor(s): Nothing Associated Signs and Symptoms: Positive: Nonproductive Cough, Other: - nasal discharge. Negative: Fever - Allergy/Home Medications Allergies/Adverse Reactions: Allergies Allergy/AdvReac Type Severity Reaction Status Date / Time Adhesive Tape [Paper Tape] Allergy Mild Rash Verified 01/17/20 13:39 amoxicillin Allergy GI Upset Verified 01/17/20 13:39 azithromycin Allergy GI Upset Verified 01/17/20 13:39 cefaclor Allergy GI Upset Verified 01/17/20 13:39 cephalexin Allergy GI Upset Verified 01/17/20 13:39 doxycycline Allergy GI Upset Verified 01/17/20 13:39 erythromycin base Allergy GI Upset Verified 01/17/20 13:39 hydrocodone Allergy GI Upset Verified 01/17/20 13:39 ibuprofen Allergy GI Upset Verified 01/17/20 13:39 Iodinated Contrast Media Allergy Hives Verified 01/17/20 13:39 [Iodinated Contrast- Oral and IV Dye] latex Allergy Rash Verified 01/17/20 13:39 levofloxacin Allergy Dizziness Verified 01/17/20 13:39 Penicillins Allergy GI Upset Verified 01/17/20 13:39 procaine Allergy Agitation Verified 01/17/20 13:39 Sulfa (Sulfonamide Allergy Blisters Verified 01/17/20 13:39 Antibiotics) yellow dye Allergy GI Upset Verified 01/17/20 13:39 Home Medications: Home Medications FLUoxetine CAP* [Prozac CAP*] 40 mg PO DAILY 05/02/13 [History Confirmed ] busPIRone TAB* [Buspar TAB*] 10 mg PO BID 10/29/14 [History Confirmed 01/17/20] Albuterol HFA INHALER* [Ventolin HFA Inhaler*] 2 puff INH Q6H PRN 05/20/19 [ History Confirmed 01/17/20] Calcium Carbonate/Vitamin D3 [Calcium 600-Vit D3 400 Tablet] 1 tab PO BID [History Confirmed 01/17/20] Cetirizine HCl/Pseudoephedrine [Cetirizine-Pse ER 5-120 mg Tab] 1 tab PO DAILY 05/20/19 [History Confirmed 01/17/20] Fluticasone-Salmeterol 250-50* [Advair Diskus 250-50*] 1 puff INH BID 05/20/19 [ History Confirmed 01/17/20] Hyoscyamine TAB* [Anaspaz 0.125 MG TAB*] 0.125 mg PO DAILY WITH MEAL 05/20/19 [ History Confirmed 01/17/20] Ketotifen Fumarate 5 ml OPHTHALMIC BID PRN 05/20/19 [History Confirmed 01/17/20] Latanoprost 0.005%* [Xalatan 0.005%*] 1 drop OPHTHALMIC BEDTIME 05/20/19 [ History Confirmed 01/17/20] Levalbuterol 1.25MG/0.5ML NEB* [Xopenex 1.25 MG/0.5 ML NEB.GUY*] 1.25 mg INH .Q4 -6H PRN 05/20/19 [History Confirmed 01/17/20] Levothyroxine TAB* [Synthroid 137 MCG TAB*] 137 mcg PO DAILY 05/20/19 [History Confirmed 01/17/20] Magnesium Oxide TAB* [MagOx 400 TAB*] 400 mg PO DAILY 05/20/19 [History Confirmed 01/17/20] Omeprazole (Nf) [Prilosec (NF)] 40 mg PO DAILY 05/20/19 [History Confirmed 01/16] Ranitidine TAB (NF) [Zantac TAB (NF)] 150 mg PO BID 05/20/19 [History Confirmed 01/17/20] hydrOXYzine HCL TAB* [Atarax 25 MG TAB*] 25 - 50 mg PO BEDTIME PRN 05/20/19 [ History Confirmed 01/17/20] traMADol TAB* [Ultram*] 50 mg PO QID 05/20/19 [History Confirmed 01/17/20] Cyclobenzaprine TAB* [Flexeril 10 MG TAB*] 10 mg PO TID PRN 4 Days #12 tab 12/17 [Rx Confirmed 01/17/20] predniSONE 20 mg TAB [Deltasone 20 MG TAB*] 40 mg PO DAILY #8 tab 01/17/20 [Rx] PMH/Surg Hx/FS Hx/Imm Hx Endocrine/Hematology History: Reports: Hx Thyroid Disease - HYPO Denies: Hx Diabetes Cardiovascular History: Denies: Hx Hypertension, Hx Pacemaker/ICD Respiratory History: Reports: Hx Asthma Denies: Hx Chronic Obstructive Pulmonary Disease (COPD) GI History: Reports: Hx Gastroesophageal Reflux Disease, Hx Hiatal Hernia Denies: Hx Ulcer History: Denies: Hx Dialysis, Hx Renal Disease Musculoskeletal History: Reports: Hx Arthritis - "ALL OVER", Other Musculoskeletal History - DDD Sensory History: Reports: Hx Contacts or Glasses - GLASSES Denies: Hx Hearing Aid Opthamlomology History: Reports: Hx Contacts or Glasses - GLASSES Psychiatric History: Reports: Hx Anxiety - ON DAILY MEDS, Hx Depression, Hx Panic Disorder, Hx Bipolar Disorder - Cancer History Hx Chemotherapy: No Hx Radiation Therapy: No - Surgical History Surgery Procedure, Year, and Place: OPEN KEYANA AND APPY 1987. HERNIA REPAIR 1996. RT KNEE SURGERY [address] [facility] [place]PAIR [address] [facility] Anesthesia Reactions: No Infectious Disease History: No Infectious Disease History: Reports: Hx Shingles Denies: Hx Clostridium Difficile, Hx Hepatitis, Hx Human Immunodeficiency Virus (HIV), Hx of Known/Suspected MRSA, Hx Tuberculosis, Hx Known/Suspected VRE , Hx Known/Suspected VRSA, History Other Infectious Disease, Traveled Outside the [place] in Last 30 Days - Family History Known Family History: Positive: Diabetes, Respiratory Disease - grandmother had COPD, Other - breast cancer - Social History Alcohol Use: None Hx Substance Use: No Substance Use Type: Reports: None Hx Tobacco Use: Yes Smoking Status (MU): Former Smoker Type: Cigarettes Amount Used/How Often: 1/2 PPD Length of Time of Smoking/Using Tobacco: 10 YRS Have You Smoked in the Last Year: No Review of Systems Negative: Fever Positive: Nasal Discharge Positive: Cough - dry All Other Systems Reviewed And Are Negative: Yes Physical Exam - Summary Physical Exam Summary: VITAL SIGNS: Reviewed. GENERAL: Patient is a well-developed and nourished female who is lying comfortable in the stretcher. Patient is not in any acute respiratory distress. HEAD AND FACE: No signs of trauma. No ecchymosis, hematomas or skull depressions. No sinus tenderness. EYES: PERRLA, EOMI x 2, No injected conjunctiva, no nystagmus. EARS: Hearing grossly intact. Ear canals and tympanic membranes are within normal limits. MOUTH: Oropharynx within normal limits. NECK: Supple, trachea is midline, no adenopathy, no JVD, no carotid bruit, no c- spine tenderness, neck with full ROM. CHEST: Symmetric, no tenderness at palpation. LUNGS: Wheezing, coarse breath sounds bilaterally. CVS: Regular rate and rhythm, S1 and S2 present, no murmurs or gallops appreciated. ABDOMEN: Soft, non-tender. No signs of distention. No rebound, no guarding, and no masses palpated. Bowel sounds are normal. EXTREMITIES: FROM in all major joints, no edema, no cyanosis or clubbing. NEURO: Alert and oriented x 3. No acute neurological deficits. Speech is normal and follows commands. SKIN: Dry and warm. Triage Information Reviewed: Yes Vital Signs On Initial Exam: Initial Vitals Temp Pulse Resp BP Pulse Ox 98.9 F 97 16 134/101 93 01/17/20 13:36 01/17/20 13:36 01/17/20 13:36 01/17/20 13:36 01/17/20 13:36 Vital Signs Reviewed: Yes Procedures - Sedation Patient Received Moderate/Deep Sedation with Procedure: No Diagnostics - Vital Signs Vital Signs Temp Pulse Resp BP Pulse Ox 01/17/20 13:36 98.9 F 97 16 134/101 93 - Laboratory Lab Results: Lab Results 01/17/20 01/17/20 Range/Units 14:47 14:48 WBC 6.8 (3.5-10.8) 10^3/uL RBC 4.30 (3.70-4.87) 10^6 /uL Hgb 12.4 (12.0-16.0) g/dL Hct 37 (35-47) % MCV 86 (80-97) fL MCH 29 (27-31) pg MCHC 34 (31-36) g/dL RDW 14 (10-15) % Plt Count 192 (150-450) 10^3/uL MPV 8.5 (7.4-10.4) fL Neut % (Auto) 71.4 % Lymph % (Auto) 17.6 % [place] % (Auto) 10.1 % Eos % (Auto) 0.6 % Baso % (Auto) 0.3 % Absolute Neuts (auto) 4.9 (1.5-7.7) 10^3/ul Absolute Lymphs (auto) 1.2 (1.0-4.8) 10^3/ul Absolute Monos (auto) 0.7 (0-0.8) 10^3/ul Absolute Eos (auto) 0.0 (0-0.6) 10^3/ul Absolute Basos (auto) 0.0 (0-0.2) 10^3/ul Absolute Nucleated RBC 0.0 10^3/ul Nucleated RBC % 0.0 Sodium 135 (135-145) mmol/L Potassium 4.3 (3.5-5.0) mmol/L Chloride 102 (101-111) mmol/L Carbon Dioxide 28 (22-32) mmol/L Anion Gap 5 (2-11) mmol/L BUN 16 (6-24) mg/dL Creatinine 0.84 (0.51-0.95) mg/dL Est GFR ( Amer) 85.5 (>60) Est GFR (Non-Af Amer) 70.7 (>60) BUN/Creatinine Ratio 19.0 (8-20) Glucose 92 (70-100) mg/dL Calcium 9.2 (8.6-10.3) mg/dL Total Bilirubin 0.40 (0.2-1.0) mg/dL AST 20 (13-39) U/L ALT 19 (7-52) U/L Alkaline Phosphatase 88 (34-104) U/L C-Reactive Protein 14.12 H (<8.01) mg/L Total Protein 7.1 (6.4-8.9) g/dL Albumin 4.1 (3.2-5.2) g/dL Globulin 3.0 (2-4) g/dL Albumin/Globulin Ratio 1.4 (1-3) Result Diagrams: 01/17/20 14:48 01/17/20 14:47 Lab Statement: Any lab studies that have been ordered have been reviewed, and results considered in the medical decision making process. - Radiology CXR Radiology Interpretation Completed By: Radiologist Summary of Radiographic Findings: IMPRESSION: COPD. PATCHY AIRSPACE DISEASE IN THE RIGHT INFRAHILAR LUNG. RECOMMEND FOLLOW-UP UNTIL RESOLUTION TO EXCLUDE UNDERLYING PULMONARY PARENCHYMAL PATHOLOGY. has reviewed this report. Disposition - Course Assessment/Plan: 54 year old F presenting to [facility] accompanied by male physician executive complains of a dry cough and runny nose for 3 days. Patient denies fever. Patient has a history of asthma. No social history of alcohol or drugs. Family history of grandmother with COPD. The patient rates the pain 10/10 in severity. Symptoms aggravated by nothing. Symptoms alleviated by nothing. Medications reviewed. Allergies noted. In the ED course the patient was placed in a route specialist, IV access was obtained. Patient is wheezing and she has a history of asthma, therefore, she was given DuoNeb and prednisone. Past medical records reviewed. Blood test w/o a significant abnormality except for CRP of 14. Influenza A not reportable. Influenza B+. After medications given the patients symptoms improved. I discussed all the findings and test results with the patient. Patient was instructed to return to the emergency room immediately if any of the symptoms return or worsen. Plan of care was discussed with the patient and understands and agrees. All questions were answered at patient satisfaction. There were no further complaints or concerns. Lung exam before discharge: CTA B/L. Good air exchange. No wheezing or crackles heard. CVS : S1 and S2 present. No murmurs appreciated. Patient is alert and oriented x 3. Patient is hemodynamically stable. Patient will be discharged home with follow up PCP in the next 2-3 days. - Diagnoses Provider Diagnoses: Influenza B, Asthma exacerbation Discharge ED - Sign-Out/Discharge Documenting (check all that apply): Patient Departure - discharge - Discharge Plan Condition: Stable Disposition: HOME Prescriptions: predniSONE 20 mg TAB [Deltasone 20 MG TAB*] 40 mg PO DAILY #8 tab Patient Education Materials: Asthma (ED), Influenza (ED) Forms: *Work Release Referrals: Yoli Ro MD [Primary Care Provider] - Additional Instructions: Please return to emergency department for any new or worsening symptoms. Please follow up with your primary care physician within 1-3 days - Billing Disposition and Condition Condition: STABLE Disposition: Home - Attestation Statements Document Initiated by Scribe: Yes Documenting Scribe: Darion Corbin Provider For Whom Harjeet is Documenting (Include Credential): Dr.Walter Marco MD Scribe Attestation: Darion Wylie scribed for Dr.Walter Marco MD on 01/18/20 at 0726. Scribe Documentation Reviewed: Yes Provider Attestation: The documentation as recorded by the Darion wooten accurately reflects the service I personally performed and the decisions made by me, Dr.Walter Marco MD Status of Scribe Document: Viewed
[2020-01-17 16:41] LABS: Influenza B Molecular POSITIVE (Negative)
[2020-01-17 17:55] VITALS: BP 105/79
== END 2020-01-17 17:52 | disposition home or self-care (01) ==
LOC: ED 13:35
DX: J10.1 Influenza due to other identified influenza virus with other respiratory manifestations (principal); J44.1 Chronic obstructive pulmonary disease with (acute) exacerbation; E03.9 Hypothyroidism, unspecified; K21.9 Gastro-esophageal reflux disease without esophagitis; F41.9 Anxiety disorder, unspecified; Z79.51 Long term (current) use of inhaled steroids; Z79.899 Other long term (current) drug therapy; Z88.6 Allergy status to analgesic agent; Z88.4 Allergy status to anesthetic agent; Z88.1 Allergy status to other antibiotic agents; Z91.041 Radiographic dye allergy status; Z91.040 Latex allergy status; Z88.5 Allergy status to narcotic agent; Z88.0 Allergy status to penicillin; Z88.2 Allergy status to sulfonamides; Z91.048 Other nonmedicinal substance allergy status; Z87.891 Personal history of nicotine dependence
CPT/HCPCS: 36415; 71046; 80053; 85025; 86140; 99283; A9270-GY; J7512